=== PATIENT | female | born 1995 ===

== ENCOUNTER 2021-05-04 12:24 | Outpatient (REF) | payer OTHER, SELFPAY ==
[2021-05-04 14:41] LABS: COVID-19 Test Positive (Negative)
== END 2021-05-04 12:25 | disposition home or self-care (01) ==
LOC: HO.LAB 12:24
PROVIDERS: Visit Provider Internal Medicine
DX: Z20.822 Contact with and (suspected) exposure to COVID-19 (principal)
CPT/HCPCS: 87635; C9803

== ENCOUNTER 2021-05-11 10:06 | Outpatient (REF) | payer OTHER, SELFPAY ==
[2021-05-11 11:25] LABS: Binax Internal Control QC Valid; Binax Now Covid-19 Ag Negative (Negative)
== END 2021-05-11 10:07 | disposition home or self-care (01) ==
LOC: HO.LAB 10:06
PROVIDERS: Visit Provider Internal Medicine
DX: Z20.822 Contact with and (suspected) exposure to COVID-19 (principal)
CPT/HCPCS: C9803

== ENCOUNTER 2022-05-04 22:20 | Emergency (ER) | payer OTHER, SELFPAY ==
[2022-05-04 22:24] VITALS: PULSE 84; RESP 18; TEMP 36.3; O2SAT 97; BMI 31.7
[2022-05-04 22:49] LABS: COVID-19 Test Negative (Negative); IDNOW Serial# 6674DD1D
[2022-05-04 22:55] LABS: IDNOW Serial# BCCEAD1C; Influenza A Negative (Negative); Influenza B2 Negative (Negative)
[2022-05-04 23:06] LABS: IDNOW Serial# 6674DD1D; Strep A Nucleic Acid Positive (Negative)
--- NOTE | 2022-05-05 01:11 | ED.GENADULT ---
HPI - General Adult General Chief complaint: General Medical Stated complaint: Sore Throat Time Seen by Provider: 05/05/22 01:03 Source: patient Mode of arrival: ambulatory Limitations: no limitations History of Present Illness HPI narrative: Patient comes to the emergency room complaining of 2 day of sore throat. Patient denies fever chills. No coughing. No difficulty breathing Related Data Previous Rx's Medication Instructions Recorded azithromycin 250 mg tablet 250 mg PO DAILY 6 days #6 tabs 05/05/22 benzocaine 15 mg lozenges 15 mg mucous membrane Q2-3H PRN 05/05/22 sore throat #18 ea Allergies Allergy/AdvReac Type Severity Reaction Status Date / Time Penicillins Allergy Severe Swelling Verified 05/05/22 01:10 Review of Systems Review of Systems: Constitutional : No Weight loss, No Fever, No Chills, No Night Sweats, No Fatigue, No Malaise ENT/Mouth : No Hearing loss, No Ear Pain, No Nasal Congestion, No Sinus Pain, No Hoarseness, complaining of sore throat, No Rhinorrhea, No Swallowing Difficulty Eyes: No Eye Pain, No Swelling, No Redness, No Foreign Body, No Discharge, No Vision Changes Cardiovascular : No Chest Pain, No SOB, No Dyspnea on Exertion, No Orthopnea, No Edema, No Palpitations Respiratory : No Cough, No Sputum, No Wheezing, No Smoke Exposure, No Dyspnea Gastrointestinal : No Nausea, No Vomiting, No Diarrhea, No Constipation, No abdominal Pain, No Hematochezia, No Melena Genitourinary : no irregular bleeding, No Dysuria, No Urinary Frequency, No Hematuria, No Urinary Incontinence, No Urgency, No Flank Pain, No Urinary Flow Changes, No Hesitancy Musculoskeletal : No joint pain, No Myalgias, No Joint Swelling Skin : No Skin Lesions, No rash Neuro : No Weakness, No Numbness, No Paresthesias, No Loss of Consciousness, No Dizziness, No Headache Psych : No Anxiety/Panic, No Depression, No SI/HI/AH/VH, No Social Issues, Heme/Lymph: No Bruising, No Bleeding,No Lymphadenopathy Endocrine : No Polyuria, No Polydipsia, No Temperature Intolerance PMFSH Social History Social History Advance Directives: No Advance Directives Information Provided: No Physical Exam ED Vital Signs: Vital Signs - 24 hr 05/04/22 22:24 Temperature 97.4 F Pulse Rate 84 Respiratory Rate 18 Pulse Oximetry 97 Oxygen Delivery Method Room Air BMI result Body Mass Index 31.7 Const Other: Appearance: Alert. Oriented X3. No acute distress. Eyes: Pupils equal, round and reactive to light. ENT: Pharynx erythematous, no exudates, no abscesses visualized Neck: Normal inspection. Neck supple. No lymph nodes noted. No crepitus CVS: Normal heart rate and rhythm. Pulses normal. Normal S1 and S2 Respiratory: No respiratory distress. Breath sounds normal. No Wheezing. No rales Abdomen: Soft and nontender. No rigidity. No distention. Skin: Skin warm and dry. Normal skin color. Normal skin turgor. Extremities: No lower extremity edema. No Lacerations. No Rash Neuro: Oriented X 3. No motor deficit. No sensory deficit. Moving all extremities. No slurred speech. CN 2 through 12 grossly intact Psych: calm, cooperative, normal affect Course Course Course Narrative: Patient tested positive for strep pharyngitis. Patient given in the emergency room 1st dose of azithromycin (patient is allergic to penicillin), PO dexamethasone and viscous lidocaine. Medical Decision Making Differential Diagnosis Differential Diagnoses: The differential diagnosis associated with the presentation includes (Strep pharyngitis, viral pharyngitis, COVID, influenza) Lab Data MDM Lab Attestation statement: I reviewed the patient's lab results. Labs: Lab Results 05/04/22 05/04/22 05/04/22 Range/Units 22:31 22:31 22:31 COVID-19 (LUCERO) Negative (Negative) COVID-19 Clin Com See Note Influenza Type A (ETHAN) Negative (Negative) Influenza Type B (ETHAN) Negative (Negative) Influenza A & B Note See Note S. pyogenes GrpA ETHAN Positive A (Negative) Discharge Plan Discharge Clinical Impression: Acute streptococcal pharyngitis Patient Disposition: Home, Self-Care Additional Instructions: Please follow-up with your primary care physician tomorrow. If you have any worsening or new symptoms, please return to the emergency room or call 911 Prescriptions: New azithromycin 250 mg tablet 250 mg PO DAILY 6 Days Qty: 6 0RF Rx Instructions: start on day 2 of therapy benzocaine 15 mg lozenge 15 mg mucous membrane Q2-3H PRN (Reason: sore throat) Qty: 18 0RF
[2022-05-05 01:26] VITALS: BP 126/58; PULSE 84; RESP 16; TEMP 37.3; O2SAT 98
[2022-05-05] MEDS: dexAMETHasone sod phosphate 4 MG/ML VIAL 6 MG IVPUSH (01:27)
[2022-05-05] MEDS: Lidocaine HCl Viscous 2 % 15 ML SOLUTION MUCOUS MEM (01:27)
[2022-05-05] MEDS: Azithromycin 500 MG TABLET PO (01:27)
== END 2022-05-05 01:38 | disposition home or self-care (01) ==
PROVIDERS: Emergency Provider Emergency Medicine
DX: J02.0 Streptococcal pharyngitis (principal); Z20.822 Contact with and (suspected) exposure to COVID-19; Z79.899 Other long term (current) drug therapy
CPT/HCPCS: 87502; 87635; 87651; 99283; J1100

== ENCOUNTER 2022-05-28 06:37 | Emergency (ER) | payer OTHER, SELFPAY ==
--- NOTE | ~2022-05-28 | XR_ITS ---
EXAMINATION: XR ABDOMEN KUB CLINICAL INDICATION: Abdominal pain and constipation. COMPARISON: None TECHNIQUE: AP views of the abdomen. FINDINGS: Moderate air and stool throughout the bowel. No significant bowel dilatation. Air and stool noted within the rectum. No abnormal soft tissue calcification. No acute osseous abnormality. IUD within the pelvis. Metallic density overlying the right lower back, indicated to represent a piercing. XR/XR KUB IMPRESSION: Moderate air and stool throughout the bowel. No significant bowel dilatation.
[2022-05-28 06:44] VITALS: BP 101/72; PULSE 80; RESP 18; TEMP 36.9; O2SAT 99
[2022-05-28 06:46] VITALS: BMI 30.9
--- OUTSIDE RECORDS SUMMARY | 2022-05-28 06:52 | XMS_ITS | Continuity of Care Document ---
:1995 Author Organization [facility] Address [address] [place] [address]- Care Team Providers Name Role Phone Aguila KUMAR, Nydia Calhoun Primary Care Physician Encounter [facility] [place] Date(s): 10/13/21 - 01/14/22 [facility] [address]- Attending Physician: Nydia Sheehan NP Admitting Physician: Nydia Sheehan NP Allergies, Adverse Reactions, Alerts Substance Reaction Severity Status penicillin Active Immunizations Given and Recorded Vaccine Date Status Refusal Reason tetanus/diphtheria/pertussis, acel(Tdap) 02/02/14 Given influenza virus vaccine, inactivated 02/02/14 Given influenza virus vaccine, inactivated1 01/31/12 Given influenza virus vaccine, inactivated 03/30/98 Given influenza virus vaccine, inactivated 12/29/97 Given hepatitis B pediatric vaccine2 05/05/10 Given hepatitis B pediatric vaccine 94 Given hepatitis B pediatric vaccine3 94 Given hepatitis B pediatric vaccine 94 Given Human Papillomavirus Vaccine4 09/20/09 Given Human Papillomavirus Vaccine5 05/20/09 Given Human Papillomavirus Vaccine6 09/05/07 Given influ virus vac, H1N1, live(oldterm)7 05/20/09 Given Influenza Inactive (IM) (oldterm)8 05/20/09 Given Meningococcal Polysaccharide Vaccine9 05/20/09 Given Tet/Diphth/Acel, Pertussis (oldterm)10 09/26/07 Given Varicella Virus Xrvompy33 09/26/07 Given Varicella Virus Vaccine 12/29/97 Given Measles/Mumps/Rubella Virus Vaccine 05/31/98 Given Measles/Mumps/Rubella Virus Vaccine 02/21/95 Given diphtheria/tetanus/pertussis, acel(DTaP) 05/31/98 Given diphtheria/tetanus/pertussis, acel(DTaP) 06/05/95 Given diphtheria/tetanus/pertussis, acel(DTaP) 94 Given diphtheria/tetanus/pertussis, acel(DTaP) 94 Given diphtheria/tetanus/pertussis, acel(DTaP) 94 Given Poliovirus Vaccine, Inactivated 05/31/98 Given Poliovirus Vaccine, Ynlyyygupdr79 94 Given Poliovirus Vaccine, Nfeyehstnrt19 94 Given Poliovirus Vaccine, Pyzhlbsnvrb04 94 Given Haemophilus B conjugate (HbOC) vaccine 06/05/95 Given Haemophilus B conjugate (HbOC) vaccine 94 Given Haemophilus B conjugate (HbOC) vaccine 94 Given Haemophilus B conjugate (HbOC) vaccine 94 Given 1Admin Note: VIS dated 10/30/11 lyqhl8Jlxle Note: VIS 11/14/06. given.3Admin Note: VIS dated 11/14/2006 kueng5Lkfdh Note: vis 07.27.2009 ftnma7Iburl Note: VIS 06/01/06 ZPWIQ4Uequf Note: gardasil #17Admin Note: VIS 01/2009 NHMCS0Oljhc Note: VIS 12/27/08 MTGIG7Rdjie Note: VIS 2007 KQVAA89Gmixj Note: RVLS72Qvtnl Note: JHEIKRP55Pypjq Note: oral yqask56Hsrmd Note: oral amdow22Alclv Note: oral polio Medications ProAir HFA 90 mcg/inh inhalation aerosol with adapter 1, puffs, Inhalation, Every 4 hours, PRN, # 2 each, Refills 2, Tot. Refills 2, Maintenance, 10/14/2211:08:00 EDT, Aerosol, Route to Pharmacy Electronically, [id number], [facility] #[id number], 463, cm, 10/13/21 11:09:00... Start Date: 10/13/21 Stop Date: 01/11/22 Status: OrderedSpacer Spacer, See Instructions, # 1 each, Refills 0, Tot. Refills 0, Maintenance, Asthma (J45.909) VAN lifetime, 10/13/21 12:09:00 EDT, Compound, 163, cm, 10/13/21 11:09:00 EDT, Height Start Date: 10/13/21 Status: OrderedZyrTEC 10 mg oral tablet 1 tablet = 10 mg, By Mouth, Daily, # 30 tablet, 11 Refills, Maintenance, 10/13/21 12:08:00 EDT, Tablet, [facility] #[id number], 163, cm, 10/13/21 11:09:00 EDT, Height Start Date: 10/13/21 Status: Ordered Problem List Condition Effective Dates Status Health Status Informant Allergic rhinitis(Confirmed) Active Asthma (possible)(Confirmed) Active Headache(Confirmed)1 Active School difficulties(Confirmed) Active Severe obesity(Confirmed) Active 1Probable migraine Social History Social History Type Response Smoking Status Never (less than 100 in life time) entered on: 10/24/18 Sex Female Care Team PersonnelName: Aguila KUMAR, Nydia Calhoun Address: [address] [place] [address]
--- OUTSIDE RECORDS SUMMARY | 2022-05-28 06:52 | XMS_ITS | Continuity of Care Document ---
:1995 Author Organization [facility] Address [address] [place] [address]- Care Team Providers Name Role Phone Aguila KUMAR, Nydia Calhoun Primary Care Physician [phone] Encounter [facility] Date(s): 02/22/22 - 03/24/22 [facility] [address]- [place] Allergies, Adverse Reactions, Alerts Substance Reaction Severity [...] Tet/Diphth/Acel, Pertussis (oldterm)10 09/26/07 Given Varicella Virus Tjbotwl29 09/26/07 Given Varicella Virus Vaccine 12/29/97 Given Measles/Mumps/Rubella Virus Vaccine 05/31/98 Given Measles/Mumps/Rubella Virus Vaccine 02/21/95 Given diphtheria/tetanus/pertussis, acel(DTaP) 05/31/98 Given diphtheria/tetanus/pertussis, acel(DTaP) 06/05/95 Given diphtheria/tetanus/pertussis, acel(DTaP) 94 Given diphtheria/tetanus/pertussis, acel(DTaP) 94 Given diphtheria/tetanus/pertussis, acel(DTaP) 94 Given Poliovirus Vaccine, Inactivated 05/31/98 Given Poliovirus Vaccine, Drtdiftukut25 94 Given Poliovirus Vaccine, Gvoaxgqwpdz30 94 Given Poliovirus Vaccine, Qpwposwkngp81 94 Given Haemophilus B conjugate (HbOC) vaccine 06/05/95 Given Haemophilus B conjugate (HbOC) vaccine 94 Given Haemophilus B conjugate (HbOC) vaccine 94 Given Haemophilus B conjugate (HbOC) vaccine 94 Given 1Admin Note: VIS dated 10/30/11 joaan6Orrak Note: VIS 11/14/06. given.3Admin Note: VIS dated 11/14/2006 wuwft1Tbpud Note: vis 07.27.2009 cxozj2Axycu Note: VIS 06/01/06 XUMWN6Vudde Note: gardasil #17Admin Note: VIS 01/2009 RDQLE0Wmybu Note: VIS 12/27/08 SQUBJ4Rovdx Note: VIS 2007 HOECZ06Tynem Note: UCWV29Udwrc Note: JMSQIHX95Myjfc Note: oral wnovz93Xbsgn Note: oral xqwus16Dpdmn Note: oral polio Medications diclofenac 1% topical gel 1 application, Topically, 4 times a day, # 100 Gm, 0 Refills, Maintenance, 01/17/22 12:11:00 EDT, [facility] #[id number], Partial fill upon patient request if the prescription is for a schedule II opioid drug., 163, cm, 01/17/22 11:08:00 EDT... Start Date: 01/17/22 Status: Orderedescitalopram 10 mg oral tablet 1 tablet = 10 mg, By Mouth, Daily, take 1/2 pills for one week, then increase to full pill daily, # 30 tablet, 2 Refills, Maintenance, 03/08/22 12:08:00 EST, Tablet, [facility] #[id number], Partial fill upon patient request if the prescription is... Start Date: 03/08/22 Status: OrderedhydrOXYzine hydrochloride 25 mg oral tablet 1 tablet = 25 mg, By Mouth, Daily at bedtime, PRN for anxiety/insomnia, may increase to 2 pills if needed, # 30 tablet, 2 Refills, Maintenance, 03/08/22 12:09:00 EST, Tablet, [facility] #[id number], Partial fill upon patient request if the prescr... Start Date: 03/08/22 Status: OrderedProAir HFA 90 mcg/inh inhalation aerosol with adapter 1, puffs, Inhalation, Every 4 hours, PRN, # 2 each, Refills 2, Tot. Refills 2, Maintenance, 01/17/2211:53:00 EDT, Aerosol, Route to Pharmacy Electronically, [id number], [facility] #[id number], 163, cm, 01/17/22 11:08:00... Start Date: 01/17/22 Stop Date: 04/17/22 Status: OrderedSpacer Spacer, See Instructions, # 1 each, Refills 0, Tot. 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 VAN: 99, 01/17/22 17:27:00 EDT, Supply Start Date: 01/17/22 Status: OrderedZyrTEC 10 mg oral tablet 1 tablet = 10 mg, By Mouth, Daily, # 30 tablet, 11 Refills, Maintenance, 10/13/21 12:08:00 EDT, Tablet, [facility] #[id number], 163, cm, 10/13/21 11:09:00 EDT, Height Start Date: 10/13/21 Status: Ordered Problem List Condition Confirmation Course Effective Dates Status Health Stat us Informant Allergic rhinitis Confirmed Active Asthma (possible) Confirmed Active Headache1 Confirmed Active Obese class I Confirmed Active School difficulties Confirmed Active 1Probable migraine Social History Social History Type Response Smoking Status Never (less than 100 in life time) entered on: 02/02/22 Sex Female Patient Care team information Care Team PersonnelName: Aguila KUMAR, Nydia Calhoun Position: [facility] PCO Associate Professional Member Role: PCP Address: Address: [address] [place] [id number]- Care Team Related PersonsName: ROEL ESCOBAR Address: home [address] [place] [address] Name: HOLDEN MENENDEZ Address: home [address] [place] [address]
--- OUTSIDE RECORDS SUMMARY | 2022-05-28 06:52 | XMS_ITS | Continuity of Care Document ---
:1995 Author Organization [facility] Address [address] [place] [address]- Care Team Providers Name Role Phone Aguila KUMAR, Nydia Calhoun Primary Care Physician [phone] Encounter [facility] [place] Date(s): 12/15/21 - 01/14/22 [facility]/[place] [address]- Attending Physician: Nikkie Olivares Admitting Physician: Nikkie Olivares Referring Physician: AdmtrNikkie Allergies, Adverse Reactions, Alerts Substance Reaction Severity [...] Tet/Diphth/Acel, Pertussis (oldterm)10 09/26/07 Given Varicella Virus Uotidoc28 09/26/07 Given Varicella Virus Vaccine 12/29/97 Given Measles/Mumps/Rubella Virus Vaccine 05/31/98 Given Measles/Mumps/Rubella Virus Vaccine 02/21/95 Given diphtheria/tetanus/pertussis, acel(DTaP) 05/31/98 Given diphtheria/tetanus/pertussis, acel(DTaP) 06/05/95 Given diphtheria/tetanus/pertussis, acel(DTaP) 94 Given diphtheria/tetanus/pertussis, acel(DTaP) 94 Given diphtheria/tetanus/pertussis, acel(DTaP) 94 Given Poliovirus Vaccine, Inactivated 05/31/98 Given Poliovirus Vaccine, Dnacxapiooq18 94 Given Poliovirus Vaccine, Myfqvsofhoy82 94 Given Poliovirus Vaccine, Ddhqtymdesa83 94 Given Haemophilus B conjugate (HbOC) vaccine 06/05/95 Given Haemophilus B conjugate (HbOC) vaccine 94 Given Haemophilus B conjugate (HbOC) vaccine 94 Given Haemophilus B conjugate (HbOC) vaccine 94 Given 1Admin Note: VIS dated 10/30/11 yeynq6Phqzb Note: VIS 11/14/06. given.3Admin Note: VIS dated 11/14/2006 isjxj8Nwxal Note: vis 07.27.2009 yzzql9Tuiyz Note: VIS 06/01/06 AUPWN9Labuo Note: gardasil #17Admin Note: VIS 01/2009 ODQYQ6Yfnhw Note: VIS 12/27/08 JWJRJ8Eogou Note: VIS 2007 NQDAV32Vqxcc Note: XZXT64Dnaik Note: OXPPYYU52Igcel Note: oral yktpe68Ymvvc Note: oral msbqv12Fbezh Note: oral polio Medications ProAir HFA 90 mcg/inh inhalation aerosol with adapter 1, puffs, Inhalation, Every 4 hours, PRN, # 2 each, Refills 2, Tot. Refills 2, Maintenance, 10/14/2211:08:00 EDT, Aerosol, Route to Pharmacy Electronically, [id number], [facility] #[id number], 302, cm, 10/13/21 11:09:00... Start Date: 10/13/21 Stop [...] 11 Refills, Maintenance, 10/13/21 12:08:00 EDT, Tablet, [facility] #[id number], 163, cm, 10/13/21 11:09:00 EDT, Height Start [...] Team PersonnelName: Aguila KUMAR, Nydia Calhoun Address: [address] [place] [address]
--- OUTSIDE RECORDS SUMMARY | 2022-05-28 06:52 | XMS_ITS | Continuity of Care Document ---
:1995 Author Organization [facility] Address [address] [place] [address]- Care Team Providers Name Role Phone Aguila KUMAR, Nydia Calhoun Primary Care Physician [place] [facility] [place] - 04/19/[address] [address] Attending Physician: Nikkie Olivares Admitting Physician: AdmtrNikkie Referring Physician: Admtr, Ar8 Allergies, Adverse Reactions, Alerts Substance Reaction Severity [...] Tet/Diphth/Acel, Pertussis (oldterm)10 09/26/07 Given Varicella Virus Sokfkpd48 09/26/07 Given Varicella Virus Vaccine 12/29/97 Given Measles/Mumps/Rubella Virus Vaccine 05/31/98 Given Measles/Mumps/Rubella Virus Vaccine 02/21/95 Given diphtheria/tetanus/pertussis, acel(DTaP) 05/31/98 Given diphtheria/tetanus/pertussis, acel(DTaP) 06/05/95 Given diphtheria/tetanus/pertussis, acel(DTaP) 94 Given diphtheria/tetanus/pertussis, acel(DTaP) 94 Given diphtheria/tetanus/pertussis, acel(DTaP) 94 Given Poliovirus Vaccine, Inactivated 05/31/98 Given Poliovirus Vaccine, Ohkhfyfmrwn03 94 Given Poliovirus Vaccine, Ndjnqsfhefe91 94 Given Poliovirus Vaccine, Usuozsfzxjd59 94 Given Haemophilus B conjugate (HbOC) vaccine 06/05/95 Given Haemophilus B conjugate (HbOC) vaccine 94 Given Haemophilus B conjugate (HbOC) vaccine 94 Given Haemophilus B conjugate (HbOC) vaccine 94 Given 1Admin Note: VIS dated 10/30/11 qlhmf0Rzqlc Note: VIS 11/14/06. given.3Admin Note: VIS dated 11/14/2006 xwfdp6Ayhbd Note: vis 07.27.2009 jhxhm4Qmkgp Note: VIS 06/01/06 SEWPO2Mjatv Note: gardasil #17Admin Note: VIS 01/2009 JKUFB9Kotwm Note: VIS 12/27/08 NYJCA8Kcpmc Note: VIS 2007 CSAUM07Nresy Note: KIEZ13Ecvym Note: KUUFRKY88Khngy Note: oral lrdvs39Ncqvj Note: oral sginq65Guvra Note: oral polio Medications diclofenac 1% topical gel 1 application, Topically, 4 times a day, # 100 Gm, 0 Refills, Maintenance, 01/17/22 12:11:00 EDT, [facility] #[id number], Partial fill upon patient request if the prescription is for a schedule II opioid drug., 163, cm, 01/17/22 11:08:00 EDT... Start Date: 01/17/22 Status: Orderedescitalopram 10 mg oral tablet 1 tablet = 10 mg, By Mouth, Daily, take 1/2 pills for one week, then increase to full pill daily, # 30 tablet, 2 Refills, Maintenance, 03/08/22 12:08:00 EST, [facility][id number], Partial fill upon patient request if the prescription is... Start Date: 03/08/22 Status: OrderedhydrOXYzine hydrochloride 25 mg oral tablet 1 tablet = 25 mg, By Mouth, Daily at bedtime, PRN for anxiety/insomnia, may increase to 2 pills if needed, # 30 tablet, 2 Refills, Maintenance, 03/08/22 12:09:00 EST, Tablet, [facility] #[id number], Partial fill upon patient request if the prescr... Start Date: 03/08/22 Status: OrderedProAir HFA 90 mcg/inh inhalation aerosol with adapter 1, puffs, Inhalation, Every 4 hours, PRN, # 2 each, Refills 2, Tot. Refills 2, Maintenance, 01/17/2211:53:00 EDT, Aerosol, Route to Pharmacy Electronically, [id number], [facility] #[id number], 163, cm, 01/17/22 11:08:00... Start Date: 01/17/22 [...] 11 Refills, Maintenance, 10/13/21 12:08:00 EDT, Tablet, [facility] #[id number], 163, cm, 10/13/21 11:09:00 EDT, Height Start [...] Team PersonnelName: Aguila KUMAR, Nydia Calhoun Position: [facility] PCO Associate Professional Member Role: PCP Address: Address: [address] [place] [id number]- Care Team Related PersonsName: ROEL ESCOBAR Address: home [address] [place] [address] Name: HOLDEN MENENDEZ Address: home [address] [place] [address]
--- OUTSIDE RECORDS SUMMARY | 2022-05-28 06:53 | XMS_ITS | Continuity of Care Document ---
:1995 Author Organization [facility] Address [address] [place] [address]- Care Team Providers Name Role Phone Aguila KUMAR, Nydia Calhoun Primary Care Physician Encounter [facility] Date(s): 02/22/22 - 02/23/[address] [address]- Encounter Diagnosis Lumbar strain (Final) - 02/23/22 Discharge Disposition: A-D/C Home Attending Physician: Riley Aly MD Admitting Physician: Riley Aly MD Referring Physician: Not on Staff, Referring MD Allergies, Adverse Reactions, Alerts Substance Reaction Severity [...] Tet/Diphth/Acel, Pertussis (oldterm)10 09/26/07 Given Varicella Virus Ihbmyjx06 09/26/07 Given Varicella Virus Vaccine 12/29/97 Given Measles/Mumps/Rubella Virus Vaccine 05/31/98 Given Measles/Mumps/Rubella Virus Vaccine 02/21/95 Given diphtheria/tetanus/pertussis, acel(DTaP) 05/31/98 Given diphtheria/tetanus/pertussis, acel(DTaP) 06/05/95 Given diphtheria/tetanus/pertussis, acel(DTaP) 94 Given diphtheria/tetanus/pertussis, acel(DTaP) 94 Given diphtheria/tetanus/pertussis, acel(DTaP) 94 Given Poliovirus Vaccine, Inactivated 05/31/98 Given Poliovirus Vaccine, Kfjnxlihpgm02 94 Given Poliovirus Vaccine, Vnnfcwmrtro62 94 Given Poliovirus Vaccine, Deckoshuxci86 94 Given Haemophilus B conjugate (HbOC) vaccine 06/05/95 Given Haemophilus B conjugate (HbOC) vaccine 94 Given Haemophilus B conjugate (HbOC) vaccine 94 Given Haemophilus B conjugate (HbOC) vaccine 94 Given 1Admin Note: VIS dated 10/30/11 pqjit8Djvmb Note: VIS 11/14/06. given.3Admin Note: VIS dated 11/14/2006 olmah4Nlsvs Note: vis 07.27.2009 zgwac9Jtuvo Note: VIS 06/01/06 VBHNX4Dalsi Note: gardasil #17Admin Note: VIS 01/2009 ZFTWH9Fqvut Note: VIS 12/27/08 ZZEMP8Qihao Note: VIS 2007 PYLRL40Qpgtv Note: UZFH36Espjj Note: SMNVDQA37Ebagb Note: oral nzoyi65Fllta Note: oral jryio24Iyugt Note: oral polio Medications diclofenac 1% topical gel 1 application, Topically, 4 times a day, # 100 Gm, 0 Refills, Maintenance, 01/17/22 12:11:00 EDT, Gel, [facility] #[id number], Partial fill upon patient request if the prescription is for a schedule II opioid drug., 163, cm, 01/17/22 11:08:00 EDT... Start Date: 01/17/22 Status: Orderedibuprofen 600 mg oral tablet 600 mg, 1, tablet, By Mouth, Every 6 hours, for 7 days, # 28 tablet, Refills 0, Tot. Refills 0, Acute 03/02/22 3:34:00 EDT, 02/23/22 3:34:00 EDT, Route to Pharmacy Electronically, [facility] #[id number], Partial fill upon patient request if the p... Start Date: 02/23/22 Stop Date: 03/02/22 Status: Orderedlidocaine 1.8% topical film 1 patch, Topically, Daily, for 7 days, leave on up to 12 hours, # 7 each, 0 Refills, Acute 03/02/22 3:34:00 EDT, 02/23/22 3:34:00 EDT, Film, [facility] #[id number], Partial fill upon patient request if the prescription is for a schedule II opioid... Start Date: 02/23/22 Stop Date: 03/02/22 Status: OrderedProAir HFA 90 mcg/inh inhalation aerosol with adapter 1, puffs, Inhalation, Every 4 hours, PRN, # 2 each, Refills 2, Tot. Refills 2, Maintenance, 01/17/2211:53:00 EDT, Aerosol, Route to Pharmacy Electronically, [id number], [facility] #[id number], 163, cm, 01/17/22 11:08:00... Start Date: 01/17/22 [...] 17:27:00 EDT, Supply Start Date: 01/17/22 Status: OrderedTylenol 325 mg oral tablet 650 mg, 2, tablet, By Mouth, Every 6 hours, PRN, for 7 days, # 56 tablet, Refills 0, Tot. Refills 0,Acute 03/02/22 3:34:00 EDT, for fever, 02/23/22 3:34:00 EDT, Route to Pharmacy Electronically, [facility] #[id number], Partial fill upon patient... Start Date: 02/23/22 Stop Date: 03/02/22 Status: OrderedValium 5 mg oral tablet 5 mg, 1, tablet, By Mouth, 3 times a day, for 3 days, Partial Fill Acceptable, # 9 tablet, Refills 0, Tot. Refills 0, Acute 02/26/22 3:34:00 EDT, 02/23/22 3:34:00 EDT, Route to Pharmacy Electronically,[facility] #[id number], Partial fill upon pa... Start Date: 02/23/22 Stop Date: 02/26/22 Status: OrderedZyrTEC 10 mg oral tablet 1 tablet = 10 mg, By Mouth, Daily, # 30 tablet, 11 Refills, Maintenance, 10/13/21 12:08:00 EDT, Tablet, [facility] #[id number], 163, cm, 10/13/21 11:09:00 EDT, Height Start Date: 10/13/21 Status: Ordered Problem List Condition Confirmation Course Effective Dates Status Health Stat us Informant Allergic rhinitis Confirmed Active Asthma (possible) Confirmed Active Headache1 Confirmed Active Obese class I Confirmed Active School difficulties Confirmed Active 1Probable migraine Vital Signs Most recent to oldest 1 2 3 [Reference Range]: Oxygen Saturation [94-100 98 % 99 % 100 % %] (02/23/22 4:02 AM) (02/23/22 3:58 AM) (02/23/22 2:13 AM) Pulse Rate [55-90 bpm] 55 bpm 48 bpm 50 bpm (02/23/22 4:02 AM) *L* *L* (02/23/22 3:58 AM) (02/23/22 2:1 3 AM) Blood Pressure 112/59 mm Hg 104/73 mm Hg 108/71 mm Hg [90-138/55-84 mm Hg] (02/23/22 4:02 AM) (02/23/22 3:58 AM) (01/29 11/18 2:13 AM) Respiratory Rate [16-30 18 br/min 16 br/min 16 br/mi n br/min] (02/23/22 3:58 AM) (02/22/22 10:25 PM) (02/22/22 10:20 PM) Temperature [96.8-100.4 97.9 DegF 98.4 DegF 98.4 Deg F DegF] (02/23/22 4:02 AM) (02/23/22 2:13 AM) (02/23/22 12:11 AM) Mode of Delivery (Oxygen) Room air Room air Room a ir (02/23/22 3:58 AM) (02/22/22 10:25 PM) (02/22/22 10:20 PM) Blood pressure sites Arm, left Arm, left Arm, left (02/23/22 4:02 AM) (02/23/22 3:58 AM) (02/23/22 2:13 AM) Temperature Route Oral Oral Oral (02/23/22 4:02 AM) (02/23/22 2:13 AM) (02/23/22 12:11 AM) Social History Social History Type Response Smoking Status Never (less than 100 in life time) entered on: 02/02/22 Sex Female Patient Care team information PersonnelName: Aguila KUMAR, Nydia Calhoun Address: Address: [address] [place] [address]
--- OUTSIDE RECORDS SUMMARY | 2022-05-28 06:53 | XMS_ITS | Continuity of Care Document ---
:1995 Author Organization [facility] enter/[facility] Address Unavailable , Care Team Providers Name Role Phone Aguila KUMAR, Nydia Calhoun Primary Care Physician Encounter [facility] Date(s): 10/15/21 - 11/14/21 [facility] Allergies, Adverse Reactions, Alerts Substance Reaction Severity [...] Tet/Diphth/Acel, Pertussis (oldterm)10 09/26/07 Given Varicella Virus Jbjgzik08 09/26/07 Given Varicella Virus Vaccine 12/29/97 Given Measles/Mumps/Rubella Virus Vaccine 05/31/98 Given Measles/Mumps/Rubella Virus Vaccine 02/21/95 Given diphtheria/tetanus/pertussis, acel(DTaP) 05/31/98 Given diphtheria/tetanus/pertussis, acel(DTaP) 06/05/95 Given diphtheria/tetanus/pertussis, acel(DTaP) 94 Given diphtheria/tetanus/pertussis, acel(DTaP) 94 Given diphtheria/tetanus/pertussis, acel(DTaP) 94 Given Poliovirus Vaccine, Inactivated 05/31/98 Given Poliovirus Vaccine, Yhmdgazwgva50 94 Given Poliovirus Vaccine, Jcfeuxlufmk96 94 Given Poliovirus Vaccine, Etddpyejnmo75 94 Given Haemophilus B conjugate (HbOC) vaccine 06/05/95 Given Haemophilus B conjugate (HbOC) vaccine 94 Given Haemophilus B conjugate (HbOC) vaccine 94 Given Haemophilus B conjugate (HbOC) vaccine 94 Given 1Admin Note: VIS dated 10/30/11 wywps3Rstxk Note: VIS 11/14/06. given.3Admin Note: VIS dated 11/14/2006 pibdt1Sdrnc Note: vis 07.27.2009 whggv6Wqjqb Note: VIS 06/01/06 WYFOO8Kuwwi Note: gardasil #17Admin Note: VIS 01/2009 CWPZL5Uxzzy Note: VIS 12/27/08 YMBBA3Eqpbx Note: VIS 2007 ARIVT91Hvafm Note: NYUA40Epxdb Note: RDSVBAO02Bzuug Note: oral rispu73Cevei Note: oral nvdfd85Bpyuc Note: oral polio Medications ProAir HFA 90 mcg/inh inhalation aerosol with adapter 1, puffs, Inhalation, Every 4 hours, PRN, # 2 each, Refills 2, Tot. Refills 2, Maintenance, 10/14/2211:08:00 EDT, Aerosol, Route to Pharmacy Electronically, [id number], [facility] #[id number], 163, cm, 10/13/21 11:09:00... Start Date: 10/13/21 Stop [...] 11 Refills, Maintenance, 10/13/21 12:08:00 EDT, Tablet, [facility] #[id number], 163, cm, 10/13/21 11:09:00 EDT, Height Start Date: 10/13/21 Status: Ordered Problem List Condition Effective Dates Status Health Status Informant Allergic rhinitis(Confirmed) Active Asthma (possible)(Confirmed) Active Headache(Confirmed)1 Active School difficulties(Confirmed) Active Severe obesity(Confirmed) Active 1Probable migraine Social History Social History Type Response Smoking Status Never (less than 100 in life time) entered on: 10/24/18 Sex Female
--- OUTSIDE RECORDS SUMMARY | 2022-05-28 06:53 | XMS_ITS | Continuity of Care Document ---
:1995 Author Organization [facility] Address [address] [place] [address]- Care Team Providers Name Role Phone Not on Staff, PCP Primary Care Physician Unavailable Encounter [facility] Date(s): 11/23/20 - 11/23/[address] [address]- Discharge Disposition: A-D/C Walkout Attending Physician: Elias Adams MD Admitting Physician: Elias Adams MD Referring Physician: Not on Staff, Referring [...] Tet/Diphth/Acel, Pertussis (oldterm)10 09/26/07 Given Varicella Virus Iqsshxw40 09/26/07 Given Varicella Virus Vaccine 12/29/97 Given Measles/Mumps/Rubella Virus Vaccine 05/31/98 Given Measles/Mumps/Rubella Virus Vaccine 02/21/95 Given diphtheria/tetanus/pertussis, acel(DTaP) 05/31/98 Given diphtheria/tetanus/pertussis, acel(DTaP) 06/05/95 Given diphtheria/tetanus/pertussis, acel(DTaP) 94 Given diphtheria/tetanus/pertussis, acel(DTaP) 94 Given diphtheria/tetanus/pertussis, acel(DTaP) 94 Given Poliovirus Vaccine, Inactivated 05/31/98 Given Poliovirus Vaccine, Mdwrtlhmtfa12 94 Given Poliovirus Vaccine, Nmziycmtjcq96 94 Given Poliovirus Vaccine, Ruxcywldsez33 94 Given Haemophilus B conjugate (HbOC) vaccine 06/05/95 Given Haemophilus B conjugate (HbOC) vaccine 94 Given Haemophilus B conjugate (HbOC) vaccine 94 Given Haemophilus B conjugate (HbOC) vaccine 94 Given 1Admin Note: VIS dated 10/30/11 ecdry7Paxdv Note: VIS 11/14/06. given.3Admin Note: VIS dated 11/14/2006 okhea2Qnzbd Note: vis 07.27.2009 uvxas0Dwyas Note: VIS 06/01/06 RHBLQ0Nhgmd Note: gardasil #17Admin Note: VIS 01/2009 NXKDI9Wibev Note: VIS 12/27/08 NIDIM1Pjtml Note: VIS 2007 VTYZD23Stkas Note: KZBJ54Myqgv Note: EZXHNWY42Esyht Note: oral gyyfj19Sfooj Note: oral umknc46Hijdx Note: oral polio Medications Flonase 50 mcg/inh nasal spray 1 sprays, Nares, Both, 2 times a day, # 16 Gm, 1 Refills, Maintenance, 10/24/18 13:55:25 EDT, [place] Start Date: 10/24/18 Status: OrderedmetroNIDAZOLE 500 mg oral tablet 1 tablet = 500 mg, By Mouth, Every 12 hours, # 28 tablet, 0 Refills, Soft Stop, 02/08/19 12:32:10 EDT, Tablet Start Date: 02/08/19 Stop Date: 02/22/19 Status: OrderedProAir HFA 90 mcg/inh inhalation aerosol with adapter 1, puffs, Inhalation, Every 4 hours, PRN, # 2 each, Refills 1, Tot. Refills 1, Maintenance, 10/24/1912:55:12 EDT, Aerosol, Do Not Route Start Date: 10/24/18 Stop Date: 12/23/18 Status: OrderedZyrTEC 10 mg oral tablet 1 tablet = 10 mg, By Mouth, Daily, # 30 tablet, 2 Refills, Maintenance, 10/24/18 13:55:26 EDT, Tablet Start Date: 10/24/18 Status: Ordered Problem List Condition Effective Dates Status Health Status Informant Allergic rhinitis(Confirmed) Active Asthma (possible)(Confirmed) Active Headache(Confirmed)1 Active School difficulties(Confirmed) Active 1Probable migraine Social History Social History Type Response Smoking Status Never (less than 100 in life time) entered on: 10/24/18 Sex Female
--- OUTSIDE RECORDS SUMMARY | 2022-05-28 06:53 | XMS_ITS | Continuity of Care Document ---
:1995 Author Organization [facility] Address [address] [place] [address]- Care Team Providers Name Role Phone Not on Staff, PCP Primary Care Physician Unavailable [facility]counter [facility] Date(s): 02/05/20 - 02/06/[address] [address]- [facility] Discharge Disposition: A-D/C Home Attending Physician: Riley [...] Tet/Diphth/Acel, Pertussis (oldterm)10 09/26/07 Given Varicella Virus Wqlylhl92 09/26/07 Given Varicella Virus Vaccine 12/29/97 Given Measles/Mumps/Rubella Virus Vaccine 05/31/98 Given Measles/Mumps/Rubella Virus Vaccine 02/21/95 Given diphtheria/tetanus/pertussis, acel(DTaP) 05/31/98 Given diphtheria/tetanus/pertussis, acel(DTaP) 06/05/95 Given diphtheria/tetanus/pertussis, acel(DTaP) 94 Given diphtheria/tetanus/pertussis, acel(DTaP) 94 Given diphtheria/tetanus/pertussis, acel(DTaP) 94 Given Poliovirus Vaccine, Inactivated 05/31/98 Given Poliovirus Vaccine, Iewjpvsruxu74 94 Given Poliovirus Vaccine, Prfslifrvvy37 94 Given Poliovirus Vaccine, Lckthayfyrm61 94 Given Haemophilus B conjugate (HbOC) vaccine 06/05/95 Given Haemophilus B conjugate (HbOC) vaccine 94 Given Haemophilus B conjugate (HbOC) vaccine 94 Given Haemophilus B conjugate (HbOC) vaccine 94 Given 1Admin Note: VIS dated 10/30/11 ngntb7Mvaaf Note: VIS 11/14/06. given.3Admin Note: VIS dated 11/14/2006 ymrqb5Ciemz Note: vis 07.27.2009 nbptj9Hfmod Note: VIS 06/01/06 XFMSC7Ekaam Note: gardasil #17Admin Note: VIS 01/2009 MHTON3Ykaqs Note: VIS 12/27/08 WXMLV3Hzzyg Note: VIS 2007 XPODR41Mjfun Note: YVIC91Kmrqa Note: BQKGRWV32Jzrys Note: oral vrynj43Pvyke Note: oral oxhth20Auykf Note: oral polio Medications Flonase 50 mcg/inh nasal spray 1 sprays, Nares, Both, 2 times a day, # 16 Gm, 1 Refills, Maintenance, 10/24/18 13:55:25 EDT, [place] Start Date: 10/24/18 Status: OrderedmetroNIDAZOLE 500 mg oral tablet 1 tablet = 500 mg, By Mouth, Every 12 hours, for 7 days, # 14 tablet, 0 Refills, Acute 02/13/20 4:23:00 EDT, 02/06/20 4:23:00 EDT, Tablet, [facility] #[id number], 165, cm, 10/24/18 13:23:00 EDT, Height, 69.9, kg, 02/08/19 14:57:00 EDT, Dry Weight Start Date: 02/06/20 Stop Date: 02/13/20 Status: OrderedmetroNIDAZOLE 500 mg oral tablet 1 [...] Headache(Confirmed)1 Active School difficulties(Confirmed) Active 1Probable migraine Results Orders for Microbiology Reports Name Date Wet Prep 02/06/20 Microbiology Reports TEST:Wet Prep STATUS:Auth (Verified) BODY SITE: SOURCE:VAGINA COLLECTED DATE/TIME:02/06/20 3:49 AMWet Prep SPECIMEN DESCRIPTION : VAGINAL SPECIMEN SPECIAL REQUESTS : NONE DIRECT EXAM : SPECIMEN RECEIVED ON DRY SWAB. UNABLE TO ANALYZE FOR TRICHOMONADS. PLEASE SUBMIT SWAB IN STERILE TUBE CONTAINING 1 ML STERILE SALINE. 4+ CLUE CELLS 2+ WHITE BLOOD CELLS NO YEAST OBSERVED REPORT STATUS : FINAL 02/06/2020 Vital Signs Most recent to oldest 1 2 3 [Reference Range]: Oxygen Saturation [94-100 %] 99 % 100 % 98 % (02/06/20 4:00 AM) (02/06/20 2:35 AM) (02/05/20 9:2 8 PM) Pulse Rate [55-90 bpm] 65 bpm 61 bpm 67 bpm (02/06/20 4:00 AM) (02/06/20 2:35 AM) (02/05/20 9:2 8 PM) Blood Pressure [90-138/55-84 mm 110/75 mm Hg 108/54 mm Hg 129/75 mm Hg Hg] (02/06/20 4:00 AM) (02/06/20 2:35 AM) (02/05/20 9:2 8 PM) Respiratory Rate [16-30 br/min] 18 br/min 18 br/min 18 br/min (02/06/20 4:00 AM) (02/06/20 2:35 AM) (02/05/20 9:2 8 PM) Temperature [96.8-100.4 DegF] 98.9 DegF (02/05/20 9:28 PM) Mode of Delivery (Oxygen) Room air Room air Room a ir (02/06/20 4:00 AM) (02/06/20 2:35 AM) (02/05/20 9:2 8 PM) Blood pressure sites Arm, right Arm, right Arm, right (02/06/20 4:00 AM) (02/06/20 2:35 AM) (02/05/20 9:2 8 PM) Temperature Route Oral (02/05/20 9:28 PM) Social History Social History Type Response Smoking Status Never (less than 100 in life time) entered on: 10/24/18 Sex Female
--- OUTSIDE RECORDS SUMMARY | 2022-05-28 06:53 | XMS_ITS | Continuity of Care Document ---
:1995 Author Organization [facility] Address [address] [place] [address]- Care Team Providers Name Role Phone Aguila KUMAR, Nydia Calhoun Primary Care Physician [facility] Date(s): 04/13/22 - 05/13/22 [facility] [address] [address] Attending Physician: Nikkie Olivares Admitting Physician: AdmNikkie nichols Referring Physician: AdmtrNikkie Allergies, Adverse Reactions, Alerts [...] Tet/Diphth/Acel, Pertussis (oldterm)10 09/26/07 Given Varicella Virus Xrbhjwb72 09/26/07 Given Varicella Virus Vaccine 12/29/97 Given Measles/Mumps/Rubella Virus Vaccine 05/31/98 Given Measles/Mumps/Rubella Virus Vaccine 02/21/95 Given diphtheria/tetanus/pertussis, acel(DTaP) 05/31/98 Given diphtheria/tetanus/pertussis, acel(DTaP) 06/05/95 Given diphtheria/tetanus/pertussis, acel(DTaP) 94 Given diphtheria/tetanus/pertussis, acel(DTaP) 94 Given diphtheria/tetanus/pertussis, acel(DTaP) 94 Given Poliovirus Vaccine, Inactivated 05/31/98 Given Poliovirus Vaccine, Usdosikossp19 94 Given Poliovirus Vaccine, Bblwragelbz62 94 Given Poliovirus Vaccine, Kwdxnhnxmdx43 94 Given Haemophilus B conjugate (HbOC) vaccine 06/05/95 Given Haemophilus B conjugate (HbOC) vaccine 94 Given Haemophilus B conjugate (HbOC) vaccine 94 Given Haemophilus B conjugate (HbOC) vaccine 94 Given 1Admin Note: VIS dated 10/30/11 wduxx6Nmfym Note: VIS 11/14/06. given.3Admin Note: VIS dated 11/14/2006 nygfk7Xtain Note: vis 07.27.2009 jkeah4Osbgq Note: VIS 06/01/06 MGKUQ6Slmvb Note: gardasil #17Admin Note: VIS 01/2009 QGIIO2Hfgjj Note: VIS 12/27/08 DDJVD3Ibscv Note: VIS 2007 XLWLX49Qvtni Note: PDKV18Ueglg Note: MQMXDHL09Yipfm Note: oral fqufx75Ofhhv Note: oral fzrcd16Ooeid Note: oral polio Medications diclofenac 1% topical gel 1 application, Topically, 4 times a day, # 100 Gm, 0 Refills, Maintenance, 01/17/22 12:11:00 EDT, [facility][id number], Partial fill upon patient request if the prescription is for a schedule II opioid drug., 163, cm, 01/17/22 11:08:00 EDT... Start Date: 01/17/22 Status: Orderedescitalopram 10 mg oral tablet 1 tablet = 10 mg, By Mouth, Daily, take 1/2 pills for one week, then increase to full pill daily, # 30 tablet, 2 Refills, Maintenance, 03/08/22 12:08:00 EST, [facility][id number], Partial fill upon patient request if the prescription is... Start Date: 03/08/22 Status: OrderedhydrOXYzine hydrochloride 25 mg oral tablet 1 tablet = 25 mg, By Mouth, Daily at bedtime, PRN for anxiety/insomnia, may increase to 2 pills if needed, # 30 tablet, 2 Refills, Maintenance, 03/08/22 12:09:00 EST, Tablet, [facility] #[id number], Partial fill upon patient request if the prescr... Start Date: 03/08/22 Status: OrderedProAir HFA 90 mcg/inh inhalation aerosol with adapter 1, puffs, Inhalation, Every 4 hours, PRN, # 2 each, Refills 2, Tot. Refills 2, Maintenance, 01/17/2211:53:00 EDT, Aerosol, Route to Pharmacy Electronically, [id number], [facility] #[id number], 163, cm, 01/17/22 11:08:00... Start Date: 01/17/22 [...] 11 Refills, Maintenance, 10/13/21 12:08:00 EDT, Tablet, [facility] #[id number], 163, cm, 10/13/21 11:09:00 EDT, Height Start [...] Team PersonnelName: Aguila KUMAR, Nydia Calhoun Position: [facility] PCO Associate Professional Member Role: PCP Address: Address: [address] [place] [address]- Care Team Related PersonsName: ROEL ESCOBAR Address: home [address] [place] [address] Name: HOLDEN MENENDEZ Address: home [address] [place] [address]
--- OUTSIDE RECORDS SUMMARY | 2022-05-28 06:53 | XMS_ITS | Continuity of Care Document ---
:[address] [facility] Address [address] [place] [address]- Care Team Providers Name Role Phone Aguila KUMAR, Nydia Calhoun Primary Care Physician Encounter [facility] Date(s): 03/01/22 - 04/03/[address] [address] Encounter Diagnosis Strain of muscle, fascia and tendon of lower back, subsequent encounter (Final) - Discharge Disposition: A-D/C Home Attending Physician: Nydia Sheehan NP Admitting Physician: Nydia Sheehan NP Referring Physician: Riley Aly MD Allergies, Adverse Reactions, Alerts Substance Reaction [...] Tet/Diphth/Acel, Pertussis (oldterm)10 09/26/07 Given Varicella Virus Nneexsv98 09/26/07 Given Varicella Virus Vaccine 12/29/97 Given Measles/Mumps/Rubella Virus Vaccine 05/31/98 Given Measles/Mumps/Rubella Virus Vaccine 02/21/95 Given diphtheria/tetanus/pertussis, acel(DTaP) 05/31/98 Given diphtheria/tetanus/pertussis, acel(DTaP) 06/05/95 Given diphtheria/tetanus/pertussis, acel(DTaP) 94 Given diphtheria/tetanus/pertussis, acel(DTaP) 94 Given diphtheria/tetanus/pertussis, acel(DTaP) 94 Given Poliovirus Vaccine, Inactivated 05/31/98 Given Poliovirus Vaccine, Pcbikevfeah22 94 Given Poliovirus Vaccine, Trbehmksbpo22 94 Given Poliovirus Vaccine, Tsasgwxcdmt40 94 Given Haemophilus B conjugate (HbOC) vaccine 06/05/95 Given Haemophilus B conjugate (HbOC) vaccine 94 Given Haemophilus B conjugate (HbOC) vaccine 94 Given Haemophilus B conjugate (HbOC) vaccine 94 Given 1Admin Note: VIS dated 10/30/11 iqsyh9Hisjy Note: VIS 11/14/06. given.3Admin Note: VIS dated 11/14/2006 cqybv1Vbtkg Note: vis 07.27.2009 vjstw9Ptwxr Note: VIS 06/01/06 PZZJI1Kzjzn Note: gardasil #17Admin Note: VIS 01/2009 CWOZM9Ekzoc Note: VIS 12/27/08 FINIR1Ubiji Note: VIS 2007 DPMON93Zcybh Note: PXLP55Ojmol Note: OTEHXDA65Udfsh Note: oral kmitk47Qnkyj Note: oral dlwkq43Vjjyn Note: oral polio Medications diclofenac 1% topical gel 1 application, Topically, 4 times a day, # 100 Gm, 0 Refills, Maintenance, 01/17/22 12:11:00 EDT, Gel, [facility] #[id number], Partial fill upon patient request if the prescription is for a schedule II opioid drug., 163, cm, 01/17/22 11:08:00 EDT... Start Date: 01/17/22 Status: Orderedescitalopram 10 mg oral tablet 1 tablet = 10 mg, By Mouth, Daily, take 1/2 pills for one week, then increase to full pill daily, # 30 tablet, 2 Refills, Maintenance, 03/08/22 12:08:00 EST, Tablet, [facility] #[id number], Partial fill upon patient request if the prescription is... Start Date: 03/08/22 Status: OrderedhydrOXYzine hydrochloride 25 mg oral tablet 1 tablet = 25 mg, By Mouth, Daily at bedtime, PRN for anxiety/insomnia, may increase to 2 pills if needed, # 30 tablet, 2 Refills, Maintenance, 03/08/22 12:09:00 EST, Tablet, [facility] #[id number], Partial fill upon patient request if the prescr... Start Date: 03/08/22 Status: OrderedProAir HFA 90 mcg/inh inhalation aerosol with adapter 1, puffs, Inhalation, Every 4 hours, PRN, # 2 each, Refills 2, Tot. Refills 2, Maintenance, 01/17/2211:53:00 EDT, Aerosol, Route to Pharmacy Electronically, [id number], [facility] #[id number], 163, cm, 01/17/22 11:08:00... Start Date: 01/17/22 [...] 11 Refills, Maintenance, 10/13/21 12:08:00 EDT, Tablet, [facility] #[id number], 163, cm, 10/13/21 11:09:00 EDT, Height Start [...] Team PersonnelName: Aguila KUMAR, Nydia Calhoun Position: [facility] PCO Associate Professional Member Role: PCP Address: Address: [address] [place] [address]- Care Team Related PersonsName: ROEL ESCOBAR Address: home [address] [place] [address] Name: HOLDEN MENENDEZ Address: home [address] [facility] [address] [place] [address]
--- OUTSIDE RECORDS SUMMARY | 2022-05-28 06:53 | XMS_ITS | Continuity of Care Document ---
:1995 Author Organization [facility] Address [address] [place] [address]- Care Team Providers Name Role Phone Aguila KUMAR, Nydia Calhoun Primary Care Physician Encounter [facility] Date(s): 04/03/22 - 05/03/[address] [address]- Attending Physician: Nikkie Olivares Admitting Physician: AdmNikkie [...] Tet/Diphth/Acel, Pertussis (oldterm)10 09/26/07 Given Varicella Virus [id number] 09/26/07 Given Varicella Virus Vaccine 12/29/97 Given Measles/Mumps/Rubella Virus Vaccine 05/31/98 Given Measles/Mumps/Rubella Virus Vaccine 02/21/95 Given diphtheria/tetanus/pertussis, acel(DTaP) 05/31/98 Given diphtheria/tetanus/pertussis, acel(DTaP) 06/05/95 Given diphtheria/tetanus/pertussis, acel(DTaP) 94 Given diphtheria/tetanus/pertussis, acel(DTaP) 94 Given diphtheria/tetanus/pertussis, acel(DTaP) 94 Given Poliovirus Vaccine, Inactivated 05/31/98 Given Poliovirus Vaccine, [id number] 94 Given Poliovirus Vaccine, [id number] 94 Given Poliovirus Vaccine, [id number] 94 Given Haemophilus B conjugate (HbOC) vaccine 06/05/95 Given Haemophilus B conjugate (HbOC) vaccine 94 Given Haemophilus B conjugate (HbOC) vaccine 94 Given Haemophilus B conjugate (HbOC) vaccine 94 Given 1Admin Note: VIS dated 10/30/11 [id number] Note: VIS 11/14/06. given.3Admin Note: VIS dated 11/14/2006 [id number] Note: vis 07.27.2009 [id number] Note: VIS 06/01/06 [id number] Note: gardasil #17Admin Note: VIS 01/2009 [id number] Note: VIS 12/27/08 [id number] Note: VIS 2007 [id number] Note: PVEP50Nmbib Note: [id number] Note: oral [id number] Note: oral [id number] Note: oral polio Medications diclofenac 1% topical gel 1 application, Topically, 4 times a day, # 100 Gm, 0 Refills, Maintenance, 01/17/22 12:11:00 EDT, [id number], Partial fill upon patient request if the prescription is for a schedule II opioid drug., 163, cm, 01/17/22 11:08:00 EDT... Start Date: 01/17/22 Status: Orderedescitalopram 10 mg oral tablet 1 tablet = 10 mg, By Mouth, Daily, take 1/2 pills for one week, then increase to full pill daily, # 30 tablet, 2 Refills, Maintenance, 03/08/22 12:08:00 EST, [id number], Partial fill upon patient request if the prescription is... Start Date: 03/08/22 Status: OrderedhydrOXYzine hydrochloride 25 mg oral tablet 1 tablet = 25 mg, By Mouth, Daily at bedtime, PRN for anxiety/insomnia, may increase to 2 pills if needed, # 30 tablet, 2 Refills, Maintenance, 03/08/22 12:09:00 EST, Tablet, [facility] #[id number], Partial fill upon patient request if the prescr... Start Date: 03/08/22 Status: OrderedProAir HFA 90 mcg/inh inhalation aerosol with adapter 1, puffs, Inhalation, Every 4 hours, PRN, # 2 each, Refills 2, Tot. Refills 2, Maintenance, 01/17/2211:53:00 EDT, Aerosol, Route to Pharmacy Electronically, [id number], [facility] #[id number], 163, cm, 01/17/22 11:08:00... Start Date: 01/17/22 [...] 11 Refills, Maintenance, 10/13/21 12:08:00 EDT, Tablet, [facility] #[id number], 163, cm, 10/13/21 11:09:00 EDT, Height Start [...] Team PersonnelName: Aguila KUMAR, Nydia Calhoun Position: [facility] PCO Associate Professional Member Role: PCP Address: Address: [address] [place] [address]- Care Team Related PersonsName: ROEL ESCOBAR Address: home [address] [place] [address] Name: HOLDEN MENENDEZ Address: home [address] [place] [address]
--- NOTE | 2022-05-28 07:01 | PC.NURSE ---
assumed care of patient, pt resting comfortably in bed, VSS. plan for imaging.
--- NOTE | 2022-05-28 07:11 | ED.GENADULT ---
HPI - General Adult General Chief complaint: General Medical Stated complaint: Constipated Time Seen by Provider: 05/28/22 06:41 Source: patient Mode of arrival: ambulatory History of Present Illness HPI narrative: This is a 27-year-old female who comes in with 2 days of no bowel movements in states the constipation is unusual for her, she also describes significant discomfort in the lower abdomen/pelvis but denies any recent urinary frequency/burning/pain and denies any fever but states that she has had some chills with nausea that started this morning but denies any vomiting. She denies any vaginal discharge and is currently on control in last spotted 3 weeks ago. Related Data Previous Rx's Medication Instructions Recorded azithromycin 250 mg tablet 250 mg PO DAILY 6 days #6 tabs 05/05/22 benzocaine 15 mg lozenges 15 mg mucous membrane Q2-3H PRN 05/05/22 sore throat #18 ea Allergies Allergy/AdvReac Type Severity Reaction Status Date / Time Penicillins Allergy Severe Swelling Verified 05/05/22 01:10 Review of Systems Review of Systems: Pertinent positives and negatives as stated in HPI [facility] Past Medical History Source: nursing notes reviewed Social History Social History Advance Directives: No Advance Directives Information Provided: Yes Physical Exam ED Vital Signs: Vital Signs - 24 hr 05/28/22 06:44 Temperature 98.4 F Pulse Rate 80 Respiratory Rate 18 Blood Pressure 101/72 Pulse Oximetry 99 Oxygen Delivery Method Room Air BMI result Body Mass Index 30.9 VITAL SIGNS: Reviewed. GENERAL: Well developed, well nourished, in no acute distress. HEAD: Normocephalic/atraumatic EYES: PERRLA, EOMI EARS: Ext canals without abnormality OROPHARYNX: no oral lesions noted, posterior pharynx clear LUNGS: Normal breath sounds. No adventitious sounds or accessory muscle use. SpO2<99> CARDIOVASCULAR: Regular rate and rhythm without noted murmurs ABDOMEN: Soft, discomfort on deep palpation over the right lower quadrant/suprapubic, non-distended with bowel sounds. MUSCULOSKELETAL: No tenderness, deformities, or effusions noted on gross inspection. EXTREMITIES: No cyanosis, clubbing or edema. SKIN: Inspection of the skin reveals no rashes NEUROLOGIC: Alert and oriented x 4. Strength and sensation to light touch were grossly intact x 4. Medical Decision Making Medical Decision Making [facility] Narrative: 27-year-old female will rule out constipation/UTI/ectopic and lower clinical suspicion for appendicitis. On review of all investigations my interpretation is that patient has moderate constipation and will receive magnesium citrate but was given strict return precautions should she develop any fevers or additional symptoms to point towards an infectious etiology. Urinalysis and U preg are negative. Differential Diagnosis Differential Diagnoses: The differential diagnosis associated with the presentation includes Please to this cuss white above Lab Data [facility] Lab Attestation statement: I reviewed the patient's lab results. Please see the discussion above Labs: Lab Results 05/28/22 05/28/22 Range/Units 07:22 07:22 Urine Color Yellow Urine Appearance Clear Urine pH 5.5 (5.0-9.0) Ur Specific [place] >= 1.030 H (1.005-1.025) Urine Protein Negative (Neg-Trace) mg/dL Urine Glucose (UA) Negative (Negative) mg/dL Urine Ketones Negative (Negative) mg/dL Urine Blood Trace H (Negative) Urine Nitrite Negative (Negative) Ur Leukocyte Esterase Negative (Negative) Urine RBC 0-2 (0-2) /HPF Urine WBC 0-5 (0-5) /HPF Ur Squamous Epith Cells 0-2 (0-2) /HPF Urine Bacteria Trace (None Seen) Hyaline Casts 0-2 (0-2) /LPF Urine Test NEGATIVE (NEGATIVE) Radiology Impression Radiologist Impression: My interpretation is in agreement with radiology's impression of the imaging study. Discharge Plan Discharge Clinical Impression: Constipation Patient Disposition: Home, Self-Care Instructions: Constipation (ED), Fleet Enema (ED), High Fiber Diet (ED), Polyethylene Glycol 3350 (By mouth) Additional Instructions: 1. Please take the magnesium citrate when she gets home, you will need to probably stay at home for bathroom access. 2. It is unlikely that you would need to continue with MiraLax which is available [id number], but if he continued to have problems or have a recurrent issue with constipation later on MiraLax is a great resource in you can use this once a day. 3. Follow-up with your primary care provider in next 2-3 days. Please do not hesitate to return to the emergency room if you experience any additional symptoms such as fevers, vomiting, worsening pain. Prescriptions: No Action azithromycin 250 mg tablet 250 mg PO DAILY 6 Days Qty: 6 0RF Rx Instructions: start on day 2 of therapy benzocaine 15 mg lozenge 15 mg mucous membrane Q2-3H PRN (Reason: sore throat) Qty: 18 0RF
[2022-05-28 07:39] LABS: Urine Pregnancy NEGATIVE (NEGATIVE)
[2022-05-28 07:40] LABS: UPreg QC Valid YES
[2022-05-28 07:45] LABS: Appearance Urine Clear; Color Urine Yellow; Glucose Urine UA Negative (Negative); Leukocyte Esterase Urine Negative (Negative); Nitrite Urine Negative (Negative); PH 5.5 (5.0-9.0); Specific Gravity - Urine >= 1.030 (1.005-1.025); UMIC TRIGGER UACC YES; Urine Blood Trace (Negative); Urine Ketones Negative (Negative); Urine Protein Negative (Neg-Trace)
[2022-05-28 07:50] LABS: Bacteria Urine Trace (None Seen); Hyaline Casts Urine 0-2 /LPF (0-2); RBC Urine 0-2 /HPF (0-2); Squamous Epithelial Cell Urine 0-2 /HPF (0-2); WBC Urine 0-5 /HPF (0-5)
== END 2022-05-28 08:54 | disposition home or self-care (01) ==
PROVIDERS: Emergency Provider Student in an Organized Health Care Education/Training Program
DX: K59.00 Constipation, unspecified (principal); R10.13 Epigastric pain; Z79.899 Other long term (current) drug therapy
CPT/HCPCS: 74018; 81001; 81025; 99283

== ENCOUNTER 2023-02-12 08:17 | Emergency (ER) | payer OTHER, SELFPAY ==
--- NOTE | ~2023-02-12 | CT_ITS ---
EXAMINATION: CT ABDOMEN AND PELVIS WITHOUT CONTRAST CLINICAL INFORMATION: Right flank pain. COMPARISON: None available. TECHNIQUE: Multidetector volumetric imaging was performed from the superior aspect of the liver through the pubic symphysis. Sagittal and coronal reformatted images were obtained on the technologist's workstation. This CT examination was performed using dose optimization techniques as appropriate, variously including the following: *Automated exposure control *Adjustment of mA and/or kV according to patient size (this includes techniques or standardized protocols for targeted exams where dose is matched to indication/reason for exam; i.e. extremities or head) *Use of iterative reconstruction technique DLP: 582 mGy-cm FINDINGS: LUNG BASES: The visualized lung bases are unremarkable. LIVER, GALLBLADDER, AND BILIARY TREE: The noncontrast liver is normal in size and contour. No biliary ductal dilatation is present. The gallbladder is unremarkable with no evidence of radiopaque gallstones, gallbladder wall thickening, or obvious pericholecystic inflammatory changes. PANCREAS: Unremarkable. SPLEEN: Unremarkable. ADRENAL GLANDS: Unremarkable. KIDNEYS AND URETERS: The kidneys are normal in size, shape, and attenuation. No renal or ureteral calculus. No hydronephrosis perinephric stranding. BLADDER: Underdistended. GASTROINTESTINAL TRACT: Small and large bowel loops are of normal caliber. No small bowel obstruction. Appendix is within normal limits. Moderate fecal retention in the colon. ABDOMINAL WALL: No significant hernia is appreciated. LYMPH NODES: No bulky abdominal or pelvic lymphadenopathy. VASCULAR: Normal caliber abdominal aorta. PELVIC VISCERA: Anteverted uterus with intrauterine device in place. Trace free fluid in pelvis. OSSEOUS STRUCTURES: No destructive bone lesions. CT/CT abdomen pelvis wo IV con IMPRESSION: No nephrolithiasis or hydronephrosis.
[2023-02-12 08:22] VITALS: BP 111/66; PULSE 70; RESP 18; TEMP 37.1; O2SAT 100; BMI 28.0
--- NOTE | 2023-02-12 08:39 | PC.NURSE ---
low back pain worse w movement, ambulating slowly, no known injury, skin wpd, awaiting md wasserman
[2023-02-12 08:46] LABS: Appearance Urine Clear; Color Urine Yellow; Glucose Urine UA Negative (Negative); Leukocyte Esterase Urine Moderate (2+) (Negative); Nitrite Urine Negative (Negative); PH 6.5 (5.0-9.0); Specific Gravity - Urine 1.015 (1.005-1.025); UMIC TRIGGER UACC YES; Urine Blood Negative (Negative); Urine Ketones Negative (Negative); Urine Protein Negative (Neg-Trace)
[2023-02-12 08:48] LABS: Bacteria Urine None Seen (None Seen); Hyaline Casts Urine 0-2 /LPF (0-2); RBC Urine 0-2 /HPF (0-2); Squamous Epithelial Cell Urine 0-2 /HPF (0-2); UACC Culture Trigger YES; WBC Urine >50 /HPF (0-5)
--- NOTE | 2023-02-12 08:50 | ED_ITS ---
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 No fever, no chills, no nausea, no vomiting, no frequency urination patient feels some discomfort with urination. Related Data Previous Rx's Medication Instructions Recorded azithromycin 250 mg tablet 250 mg PO DAILY 6 days #6 tabs 05/05/22 benzocaine 15 mg lozenges 15 mg mucous membrane Q2-3H PRN 05/05/22 sore throat #18 ea nitrofurantoin 100 mg PO Q12H 7 days #14 caps 02/12/23 monohydrate/macrocrystals 100 mg capsule (Macrobid) Allergies Allergy/AdvReac Type Severity Reaction Status Date / Time Penicillins Allergy Severe Swelling Verified 02/12/23 08:27 Review of Systems 2 Review of Systems: All other systems are reviewed and are negative Constitutional: Reports as per HPI and Reports no additional constitutional complaints Eyes: Reports as per HPI and Reports no additional eye complaints Reports system reviewed and no additional complaints, except as documented Cardiovascular: Reports as per HPI and Reports no additional cardiovascular complaints Respiratory: Reports as per HPI and Reports no additional respiratory complaints Gastrointestinal: Reports as per HPI and Reports no additional gastrointestinal complaints Genitourinary: Reports no additional female genitourinary complaints Musculoskeletal: Reports no additional musculoskeletal complaints Skin/Breast: Reports system reviewed and no additional complaints, except as docu Psychiatric: Reports no additional psychiatric complaints Endocrine: Reports no additional endocrine complaints Hematologic/Lymphatic: Reports no additional hematologic/lymphatic complaints Allergic/Immunologic: Reports no additional allergic/immunologic complaints Reports system reviewed and no additional complaints, except as documented and Reports Abnormal speech present PMFSH Social History Social History Advance Directives: No Advance Directives Information Provided: Yes Physical Exam 2 Vital Signs: Vital Signs: Last Vital Signs Temp 98.7 F 02/12/23 08:22 Pulse 70 02/12/23 08:22 Resp 18 02/12/23 08:22 BP 111/66 02/12/23 08:22 Pulse Ox 100 02/12/23 08:22 O2 Del Method Room Air 02/12/23 08:22 BMI result Body Mass Index 28.0 Vital signs have been reviewed and appear to be correct. Blood pressure elevated. Heart rate normal. Respiratory rate normal. Temperature normal. Oxygen saturation normal. Appearance: Alert. Oriented X3. No acute distress. Head: Normal external exam. Normocephalic. Atraumatic. No Jackman signs noted. No raccoon eyes noted Eyes: PERRLA. EOMI. Conjunctiva and sclera normal. Eyelids normal. ENT: TM's Normal. Pharynx normal. Uvula midline. Moist mucous membranes. No trismus noted. No drooling noted. No muffled voice noted. Neck: Normal inspection. Neck supple. FROM. No adenopathy. Thyroid Normal. No meningeal signs. No neck mass noted. CVS: Normal heart rate and rhythm. Heart sound normal. No murmurs noted. Pulses normal throughout. Respiratory: No respiratory distress. Painless inspiration. Breath sounds normal. No wheezes/rales/rhonchi noted. Chest nontender. No accessory muscle usage noted or decreased air movement noted. Abdomen: Soft and nontender. Bowel sounds normal in all 4 quadrants. No distention noted. No organomegaly noted. No visible injury noted. Back: R CVA tenderness. Full range of motion noted. Skin: Skin warm and dry. Normal skin color. Normal skin turgor. No rashes/lesions/lacerations noted. Extremities: No lower extremity edema. Extremities exhibit normal range of motion. Extremities nontender. Neuro: Oriented X 3. Cranial nerve exam: II-XII are grossly intact No motor deficit. No sensory deficit. Reflexes normal. Course Reevaluation(s) Reevaluation #1: UTI/right flank pain consistent with right pyelonephritis, will start the patient on Macrobid and patient was instructed to drink plenty of fluids use NSAIDs if needed for pain. Time: 10:50 Medications Administered Discontinued Medications Generic Name Dose Route Start Last Admin Trade Name Freq PRN Reason Stop Dose Admin Oxycodone HCl 5 mg 02/12/23 08:48 02/12/23 09:31 Oxycodone Hcl Immed Release 5 Mg Tablet PO 02/12/23 08:49 5 mg ONCE ONE Administration Medical Decision Making Differential Diagnosis Differential Diagnoses: The differential diagnosis associated with the presentation includes (Pulled muscle, pyelonephritis, UTI, , kidney stone, acute appendicitis, electrolyte abnormality, severe anemia.) Admission/Observation Consideration of admission/observation: Escalation of care including admission/observation considered Lab Data MDM Lab Attestation statement: I reviewed the patient's lab results. 02/12/23 08:58 02/12/23 08:58 Labs: Lab Results 02/12/23 02/12/23 Range/Units 08:37 08:58 WBC 6.4 (4.8-10.8) X10*3/uL RBC 4.53 (4.20-5.50) X10*6/uL Hgb 13.5 (12.0-16.0) g/dl Hct 41.0 (37.0-47.0) % MCV 90.5 (80.0-98.0) fL MCH 29.8 (27.0-33.0) pg MCHC 32.9 (31.0-35.0) g/dl RDW 13.2 (11.0-16.0) % Plt Count 273 (160-400) X10*3/uL MPV 10.7 (9.4-12.3) fL Immature Gran % (Auto) 0.2 (0.0-0.4) % Neut % (Auto) 62.4 (45-73) % Lymph % (Auto) 29.5 (20-40) % [place] % (Auto) 5.4 (2-11) % Eos % (Auto) 2.2 (0-4) % Baso % (Auto) 0.3 (0-2) % Lymph # (Auto) 1.9 (1.2-4.9) X10*3/uL [place] # (Auto) 0.4 (0.1-1.2) X10*3/uL Eos # (Auto) 0.1 (0.0-0.4) X10*3/uL Baso # (Auto) 0.0 (0.0-0.2) X10*3/uL Abs Immat Gran (auto) 0.01 (0.00-0.03) X10*3/uL Absolute Neuts (auto) 4.0 (2.0-8.3) x10*3/uL Absolute Nucleated RBC 0.000 (0.0-0.012) X10*3/uL Nucleated RBC % (auto) 0.0 (0.0-0.2) /100WBC Sodium 139 (135-145) mmol/L Potassium 4.0 (3.3-5.1) mmol/L Chloride 108 (96-108) mmol/L Carbon Dioxide 22 (22-29) mmol/L Anion Gap 13 (12-20) BUN 6 L (9-16) mg/dL Creatinine 0.76 (0.5-1.4) mg/dL Estim Creat Clear Calc 108.5 Estimated GFR > 60 Random Glucose 84 (60-115) mg/dL Calcium 9.0 (8.4-10.2) mg/dL Total Bilirubin 0.4 (0.0-1.0) mg/dL Direct Bilirubin 0.1 (0.0-0.5) mg/dL AST 17 (5-31) U/L ALT 19 (0-31) U/L Alkaline Phosphatase 48 (39-117) U/L Total Protein 7.6 (6.5-8.0) g/dL Albumin 4.4 (3.5-5.0) g/dL Lipase 28 (8-78) U/L Urine Color Yellow Urine Appearance Clear Urine pH 6.5 (5.0-9.0) Ur Specific [place] 1.015 (1.005-1.025) Urine Protein Negative (Neg-Trace) mg/dL Urine Glucose (UA) Negative (Negative) mg/dL Urine Ketones Negative (Negative) mg/dL Urine Blood Negative (Negative) Urine Nitrite Negative (Negative) Ur Leukocyte Esterase Moderate (2+) H (Negative) Urine RBC 0-2 (0-2) /HPF Urine WBC >50 H (0-5) /HPF Ur Squamous Epith Cells 0-2 (0-2) /HPF Urine Bacteria None Seen (None Seen) Hyaline Casts 0-2 (0-2) /LPF Urine Test NEGATIVE (NEGATIVE) Independent Interpretation I performed an independent interpretation of an: CT Scan (Abdomen and pelvis: No acute intra-abdominal pathology) Radiology Impression Discussion of test interpretation with radiology: I have reviewed the radiologist's reading. Discharge Plan Discharge Clinical Impression: Pyelonephritis Patient Disposition: Home, Self-Care Instructions: Kidney Infection (ED) Additional Instructions: Drink plenty of fluid Prescriptions: New nitrofurantoin monohyd/m-cryst [Macrobid] 100 mg capsule 100 mg PO Q12H 7 Days Qty: 14 0RF Rx Instructions: must administer with a meal/food No Action azithromycin 250 mg tablet 250 mg PO DAILY 6 Days Qty: 6 0RF Rx Instructions: start on day 2 of therapy benzocaine 15 mg lozenge 15 mg mucous membrane Q2-3H PRN (Reason: sore throat) Qty: 18 0RF Stand Alone Forms: Work/School Release
[2023-02-12 09:00] LABS: Urine Pregnancy NEGATIVE (NEGATIVE)
[2023-02-12 09:01] LABS: UPreg QC Valid YES
[2023-02-12 09:07] LABS: MANUAL DIFF FLAG NO
[2023-02-12 09:10] LABS: Basophils Percent Auto 0.3 % (0-2); Eosinophils Absolute Auto 0.1 X10*3/uL (0.0-0.4); Eosinophils Percent Auto 2.2 % (0-4); Hemoglobin 13.5 g/dl (12.0-16.0); Imm Gran Abs Auto 0.01 X10*3/uL (0.00-0.03); Imm Gran Pct Auto 0.2 % (0.0-0.4); Lymphocytes Absolute Auto 1.9 X10*3/uL (1.2-4.9); Lymphocytes Percent Auto 29.5 % (20-40); Mean Corpuscular HGB Conc 32.9 g/dl (31.0-35.0); Mean Corpuscular Hemoglobin 29.8 pg (27.0-33.0); Mean Corpuscular Volume 90.5 fL (80.0-98.0); Mean Platelet Volume 10.7 fL (9.4-12.3); Monocytes Absolute Auto 0.4 X10*3/uL (0.1-1.2); Monocytes Percent Auto 5.4 % (2-11); Neutrophils Percent Auto 62.4 % (45-73); Platelet Count 273 X10*3/uL (160-400); Red Blood Count 4.53 X10*6/uL (4.20-5.50); Red Cell Distribution Width 13.2 % (11.0-16.0); White Blood Count 6.4 X10*3/uL (4.8-10.8)
[2023-02-12 09:30] LABS: Alanine Aminotransferase 19 U/L (0-31); Albumin Level 4.4 g/dL (3.5-5.0); Alkaline Phosphatase 48 U/L (39-117); Anion Gap 13 (12-20); Aspartate Amino Transferase 17 U/L (5-31); Bilirubin Direct 0.1 mg/dL (0.0-0.5); Bilirubin Total 0.4 mg/dL (0.0-1.0); Blood Urea Nitrogen 6 mg/dL (9-16); Carbon Dioxide 22 mmol/L (22-29); Chloride 108 mmol/L (96-108); Creatinine Clr Calc Pharmacy 108.5; Estimated Glomerular Filt Rate > 60; Glucose Random 84 mg/dL (60-115); Lipase 28 U/L (8-78); Sodium 139 mmol/L (135-145); Total Protein 7.6 g/dL (6.5-8.0)
[2023-02-12] MEDS: oxyCODONE HCl Immed Release 5 MG TABLET PO (09:31)
[2023-02-12] MEDS: Nitrofurantoin Monohyd/M-Cryst 100 MG CAPSULE PO (10:54)
== END 2023-02-12 11:02 | disposition home or self-care (01) ==
PROVIDERS: Emergency Provider Emergency Medicine
DX: N12 Tubulo-interstitial nephritis, not specified as acute or chronic (principal); R10.9 Unspecified abdominal pain; M54.50 Low back pain, unspecified; Z79.899 Other long term (current) drug therapy
CPT/HCPCS: 36415; 74176; 80048; 80076; 81001; 81025; 83690; 85025; 87086; 99283; 99284

== ENCOUNTER 2023-03-28 08:57 | Emergency (ER) | payer OTHER, SELFPAY ==
[2023-03-28 09:01] VITALS: BP 121/79; PULSE 99; RESP 17; TEMP 37.9; O2SAT 98; BMI 28.5
--- NOTE | 2023-03-28 09:11 | ED_ITS ---
HPI - General Adult General Chief complaint: Upper Respiratory Symptoms Stated complaint: Cough, chills Time Seen by Provider: 03/28/23 09:09 Source: patient Mode of arrival: ambulatory Limitations: no limitations History of Present Illness HPI narrative: Patient is a 28-year-old female with history of asthma presenting to the emergency department with complaint of nonproductive cough, nasal congestion, headaches, fatigue, sore throat, and chills since Sunday. States that she initially thought her symptoms were related to a dog allergy as she was around a dog on Sunday. States nasal congestion began on Sunday. Reports chills began this morning. Has taken ibuprofen and NyQuil with little relief. Reports that her mother and brother who she does not live with are sick with similar symptoms. Has not checked her temperature with thermometer at home. Denies any chest pain or palpitations. Denies any nausea, vomiting, diarrhea. Denies worst headache of life, denies headache worst at onset. complaint: Cough, chills Onset (ago): day(s) Location: head Radiation: non-radiation Severity: moderate Quality: aching Pain Consistency: intermittent Relieving factors: none Exacerbating factors: none Associated symptoms: cough Treatments prior to arrival: NSAID Related Data Previous Rx's Medication Instructions Recorded azithromycin 250 mg tablet 250 mg PO DAILY 6 days #6 tabs 05/05/22 benzocaine 15 mg lozenges 15 mg mucous membrane Q2-3H PRN 05/05/22 sore throat #18 ea nitrofurantoin 100 mg PO Q12H 7 days #14 caps 02/12/23 monohydrate/macrocrystals 100 mg capsule (Macrobid) Allergies Allergy/AdvReac Type Severity Reaction Status Date / Time Penicillins Allergy Severe Swelling Verified 03/28/23 09:01 Review of Systems Review of Systems: As per HPI. Yes all other systems are reviewed and are negative Constitutional: Constitutional: Reports as per HPI [facility] Social History Social History Smoked in Last 30 Days: No Use of substances other than those prescribed or required for medical reasons: No Advance Directives: No Patient : No Physical Exam ED Vital Signs: Vital Signs - 24 hr 03/28/23 09:01 Temperature 100.3 F Pulse Rate 99 Respiratory Rate 17 Blood Pressure 121/79 Pulse Oximetry 98 BMI result Body Mass Index 28.5 Vital signs have been reviewed and appear to be correct. Blood pressure normal. Heart rate normal. Respiratory rate normal. Temperature normal. Oxygen saturation normal. Const General: cooperative, healthy appearing and no acute distress Orientation/consciousness: oriented to person, oriented to place, oriented to time and patient oriented x3 Limitations: no limitations HENMT Head: Yes normocephalic and Yes atraumatic Ears: external ears normal and TM abnormal erythematous bilateral General nose exam: Normal external nose present Face and sinus: Yes face symmetric Mouth: Normal oral and palatal mucosa present, oropharynx normal and moist mucous membranes Throat: Yes uvula midline, No peritonsillar mass, Yes posterior oropharynx abnormal (erythema, no edema or exudate) and No uvular edema Eyes Pupils: Equal, round and reactive pupils present Neck Neck: Yes normal visual inspection and Yes supple Lymphatic: no lymphadenopathy noted Resp Effort & Inspection: normal respiratory effort and able to speak in complete sentences Auscultation: clear to auscultation bilaterally Cardio Rate: regular rate Rhythm: regular rhythm Heart sounds: S1 normal heart sound present and S2 normal heart sound present GI Palpation (GI): Soft to palpation and nontender Auscultation: normoactive bowel sounds General: Yes no CVA tenderness Back/Spine/Pelvis Back: no CVA tenderness Skin General skin exam: elasticity normal and turgor normal Neuro General: oriented to person, oriented to place, oriented to time, patient oriented x3, moves all extremities, no focal motor deficits and CN's II-XI intact bilaterally Cranial nerves: Yes Equal, round and reactive pupils present Cognition (Neuro): normal cognition Extrem General: Yes full ROM, Yes no pedal edema and Yes no calf tenderness Psych Mental Status: mental status grossly normal Affect: normal affect Thought process: Normal thought process present Medications Administered Discontinued Medications Generic Name Dose Route Start Last Admin Trade Name Freq PRN Reason Stop Dose Admin Acetaminophen 975 mg 03/28/23 09:25 03/28/23 09:34 Acetaminophen 325 Mg Tablet PO 03/28/23 09:26 975 mg ONCE ONE Administration Ibuprofen 600 mg 03/28/23 09:25 03/28/23 09:35 Ibuprofen 600 Mg Tablet PO 03/28/23 09:26 600 mg ONCE ONE Administration Medical Decision Making Medical Decision Making MDM Narrative: Patient is a 28-year-old female with history of asthma presenting to the emergency department with complaint of nonproductive cough, nasal congestion, headaches, fatigue, sore throat, and chills since Sunday. On exam patient is awake, A+Ox3, VS WNL, afebrile, normal neurological exam without focal deficits, physical exam findings as above. Given reported symptoms and physical exam findings, initial differential includes viral illness, Covid, flu, strep pharyngitis, bronchitis, sinusitis. Swab positive for influenza a, patient updated on results and all questions answered. Advised patient to ensure adequate rest, adequate fluid intake, alternate Tylenol ibuprofen. Return precautions discussed at bedside. Instructed patient to follow-up with primary care provider. Patient verbalized understanding of and agreement with plan. Differential Diagnosis Differential Diagnoses: The differential diagnosis associated with the presentation includes As per [facility]. Lab Data [facility] Lab Attestation statement: I reviewed the patient's lab results. As per [facility]. Labs: Lab Results 03/28/23 Range/Units 09:22 COVID-19 ([facility]) Negative (Negative) COVID-19 Clin Com See Note Influenza Type A ([facility]) Positive A (Negative) Influenza Type B ([facility]) Negative (Negative) Influenza A & B Note See Note S. pyogenes GrpA [facility] Negative (Negative) External Record Review External record reviewed: Inpatient record, Office record and Outpatient record Discharge Plan Discharge Clinical Impression: Influenza A Patient Disposition: Home, Self-Care Instructions: Influenza (DC) Additional Instructions: You were evaluated in the emergency department today for body aches and cough. Your flu test was positive for flu A. Influenza is a viral illness which will resolve on its own with time and rest. You should ensure adequate fluid intake, and can use Tylenol 650 mg or ibuprofen 600 mg every 6 hours as needed for fever or discomfort. If necessary, you can alternate these medications every 3 hours. For example, at noon take Tylenol, then at 3:00 p.m. take ibuprofen, then at 6:00 p.m. take Tylenol, etc.. Please follow-up with your primary care provider this week. Return to the emergency department if you develop chest pain, worsening shortness of breath, difficulty swallowing, fever 100.4? F or greater not improved with Tylenol/ibuprofen or any other concerning symptoms. Prescriptions: No Action azithromycin 250 mg tablet 250 mg PO DAILY 6 Days Qty: 6 0RF Rx Instructions: start on day 2 of therapy benzocaine 15 mg lozenge 15 mg mucous membrane Q2-3H PRN (Reason: sore throat) Qty: 18 0RF nitrofurantoin monohyd/m-cryst [Macrobid] 100 mg capsule 100 mg PO Q12H 7 Days Qty: 14 0RF Rx Instructions: must administer with a meal/food Stand Alone Forms: Work/School Release
--- NOTE | 2023-03-28 09:28 | PC.NURSE ---
swabs obtained and sent to lab.
[2023-03-28] MEDS: Acetaminophen 325 MG TABLET 975 MG PO (09:34)
[2023-03-28] MEDS: Ibuprofen 600 MG TABLET PO (09:35)
--- NOTE | 2023-03-28 09:36 | PC.NURSE ---
medication administered for pain/fever - will reassess.
[2023-03-28 09:46] LABS: IDNOW Serial# 08D9AD1C; Strep A Nucleic Acid Negative (Negative)
[2023-03-28 09:47] LABS: COVID-19 Test Negative (Negative); IDNOW Serial# BCCEAD1C
[2023-03-28 09:51] LABS: IDNOW Serial# 9DB6401D; Influenza A Positive (Negative); Influenza B2 Negative (Negative)
== END 2023-03-28 10:43 | disposition home or self-care (01) ==
PROVIDERS: Registered Nurse Emergency; Emergency Provider Emergency Medicine
DX: J10.1 Influenza due to other identified influenza virus with other respiratory manifestations (principal); R05.9 Cough, unspecified; R09.81 Nasal congestion; R51.9 Headache, unspecified; Z11.52 Encounter for screening for COVID-19; Z20.822 Contact with and (suspected) exposure to COVID-19; Z79.899 Other long term (current) drug therapy
CPT/HCPCS: 87502; 87635; 87651; 99283; 99284

== ENCOUNTER 2023-09-21 15:27 | Emergency (ER) | payer OTHER, SELFPAY ==
--- NOTE | ~2023-09-21 | CT_ITS ---
EXAMINATION: CT HEAD WITHOUT CONTRAST CLINICAL INFORMATION: Head injury. Neck pain. COMPARISON: None available. TECHNIQUE: Contiguous axial imaging was performed from the skull base to vertex without intravenous administration of contrast. This CT examination was performed using dose optimization techniques as appropriate, variously including the following: *Automated exposure control *Adjustment of mA and/or kV according to patient size (this includes techniques or standardized protocols for targeted exams where dose is matched to indication/reason for exam; i.e. extremities or head) *Use of iterative reconstruction technique DLP: 744 mGy-cm FINDINGS: There is no acute intracranial hemorrhage. There is no evidence of acute/subacute cerebral or cerebellar infarction. There is no midline shift or mass effect. There is no extra-axial fluid collection. The ventricles are normal in size. The orbits are symmetric and within normal limits. The calvarium is intact. The visualized paranasal sinuses and mastoid air cells are clear. CT/CT head/brain wo IV con IMPRESSION: No acute intracranial pathology.
--- NOTE | ~2023-09-21 | CT_ITS ---
EXAMINATION: CT CERVICAL SPINE WITHOUT CONTRAST CLINICAL INFORMATION: Neck pain. Head injury. COMPARISON: None available. TECHNIQUE: Noncontrast CT of the cervical spine was performed. This CT examination was performed using dose optimization techniques as appropriate, variously including the following: *Automated exposure control *Adjustment of mA and/or kV according to patient size (this includes techniques or standardized protocols for targeted exams where dose is matched to indication/reason for exam; i.e. extremities or head) *Use of iterative reconstruction technique DLP: 273 mGy-cm FINDINGS: There is straightening of the cervical lordosis. Alignment is otherwise anatomic. The facet joints are anatomically aligned. Vertebral body heights are maintained. Intervertebral disc space heights are preserved. The C1-C2 relationship is anatomic. The dens is intact. The prevertebral soft tissue is normal in appearance. Paraspinal soft tissue is normal in appearance. There is no acute cervical spine fracture. The lung apices are clear. The thyroid gland is normal in appearance. CT/CT cervical spine wo IV con IMPRESSION: No acute osseous cervical spine abnormality. Fleischner guidelines were followed.
[2023-09-21 15:45] VITALS: BP 118/71; PULSE 85; RESP 16; TEMP 36.9; O2SAT 99; BMI 27.5
--- NOTE | 2023-09-21 15:47 | ED_ITS ---
HPI - Head Injury General Chief complaint: Head Injury Stated complaint: work inj, head inj. R facial/ neck pain Time Seen by Provider: 09/21/23 16:00 Source: patient Mode of arrival: ambulatory Limitations: no limitations History of Present Illness HPI Narrative: patient is a 28-year-old female who presents to the emergency department for evaluation after head injury while at work today. she states at approximately 08:45 this morning, a plastics/ceramic tile that forms the car of a train fell down striking the top/ posterior portion of her head. She denies any loss of consciousness. She reports a posterior headache and pressure to the base of her skull. 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 She states as the day pro gressed her pain only increased. She denied taking any OTC oral analgesics. She denies any dizziness, lightheadedness, vision changes, nausea, vomiting, numbness or tingling of her extremities. Denies use of anticoagulants or known coagulation disorders. On her initial evaluation in triage she had tenderness upon palpation to the midline cervical spine and she was placed in a hard cervical spine collar Related Data Previous Rx's ?Medication ?Instructions ?Recorded azithromycin 250 mg tablet 250 mg PO DAILY 6 days #6 tabs 05/05/22 benzocaine 15 mg lozenges 15 mg mucous membrane Q2-3H PRN 05/05/22 sore throat #18 ea nitrofurantoin 100 mg PO Q12H 7 days #14 caps 02/12/23 monohydrate/macrocrystals 100 mg capsule (Macrobid) Allergies Allergy/AdvReac Type Severity Reaction Status Date / Time Penicillins Allergy Severe Swelling Verified 09/21/23 15:46 Review of Systems Review of Systems: Yes all other systems are reviewed and are negative [facility] Past Medical History Attestation statement: The following information was validated with the patient. Source: old records reviewed Social History Social History Advance Directives: No Advance Directives Information Provided: No Physical Exam Vital Signs: Vital Signs: Last Vital Signs Temp 98.4 F 09/21/23 15:45 Pulse 85 09/21/23 15:45 Resp 16 09/21/23 15:45 BP 118/71 09/21/23 15:45 Pulse Ox 99 09/21/23 15:45 O2 Del Method Room Air 09/21/23 15:45 BMI result Body Mass Index 27.5 Appearance: Alert.?Oriented to person, place and time. No acute distress.?Normal affect. Head: Normocephalic, atraumatic Eyes: Pupils equal, round and reactive to light.? EOMI. No nystagmus. ENT: Pharynx normal.?? Neck: Normal inspection.? Neck supple.?? Full range of motion noted to neck. Endorsed midline tenderness upon palpation though no palpable step-offs or deformities. CVS: Heart sounds normal. Normal heart rate and rhythm.? Pulses normal.?? Respiratory: No respiratory distress.? Lung sounds clear to auscultation bilaterally?? Abdomen: Soft and non-tender. Normoactive bowel sounds. ? Skin: Skin warm and dry.? Normal skin color.? Extremities: No lower extremity edema.? Neuro: Moves all extremities spontaneously. Sensation intact bilaterally. CN II- XII intact. No focal neuro deficits. Ambulates with normal steady gait. Course Course Course Narrative: This is an RME: Additional HPI, ROS, PE not included below will be deferred to primary provider. RME assessment and note performed by: Angelica Mcclendon PA-C This is a [id number]-female presenting to the ER with complaints of headache and neck pain. Reports that while she was at work this morning at 8:45AM, a panel struck the top of her head. Denies LOC. She reports headache and pressure in the back of her neck. She states that she was [facility] and was told to go back to work. She states that the pain has only worsened. No vomiting or changes in vision. She is not on blood thinners. She has TTP along her midline spine. Patient placed in C-spine collar and sent back to main emergency department Plan: CT head, CT cervical spine Medical Decision Making Medical Decision Making MDM Narrative: patient is a 28-year-old female who presents emergency department for evaluation of head injury without loss of consciousness as per HPI. On examination she has no focal neurological deficits. Had palpable midline cervical spine tenderness but no deformities or step-offs. She was placed in a hard cervical spine collar. CT of the head /cervical spine was obtained to evaluate for ICH, fracture, subluxation, which reveals no acute intracranial pathology and no cervical spine osseous abnormalities including fracture subluxation. Hard cervical spine collar was removed. She has full range of motion to the neck. Has no paraspinal muscle tenderness upon palpation. She is palpable tenderness along the base of the skull/ scalp. She does report a history of migraine headaches, and would like to avoid pain medication. I did suggest her considering the use of acetaminophen / ibuprofen to give her relief from her symptoms. She has not due to work again for the next 3 days. 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 Discussed symptoms associated with concussion, worrisome signs and symptoms that would warrant re-evaluation in the emergency department. At this time feel that she is stable for discharge home. Differential Diagnosis Differential Diagnoses: The differential diagnosis associated with the presentation includes ( See narrative above) Admission/Observation Consideration of admission/observation: Escalation of care including admission/observation considered ( see narrative above) Independent Interpretation I performed an independent interpretation of an: CT Scan ( No ICH or fracture) Radiology Impression Discussion of test interpretation with radiology: I have reviewed the radiologist's reading. Radiologist Impression: CT/CT head/brain wo IV con IMPRESSION: No acute intracranial pathology. CT/CT cervical spine wo IV con IMPRESSION: No acute osseous cervical spine abnormality. Prescription Management I considered prescription management with: Pain Medication ( see narrative above) Discharge Plan Discharge Clinical Impression: Concussion without loss of consciousness Patient Disposition: Home, Self-Care Instructions: Concussion (ED) Additional Instructions: You can take ibuprofen 200 mg, 3 tablets (600mg) every 6-8 hours as needed for pain, in addition to Tylenol 500 mg, 2 tablets (1,000mg) every 4-6 hours as needed for pain, but not to exceed 3 doses daily (3,000mg).? you may return to emergency department any new or worsening symptoms or concerns. Follow-up closely with your primary care provider, be sure that you contact your food checkers and cashiers supervisor to discuss any potential follow-up with workmen's comp for your return to work. Prescriptions: No Action azithromycin 250 mg tablet 250 mg PO DAILY 6 Days Qty: 6 0RF Rx Instructions: start on day 2 of therapy benzocaine 15 mg lozenge 15 mg mucous membrane Q2-3H PRN (Reason: sore throat) Qty: 18 0RF nitrofurantoin monohyd/m-cryst [Macrobid] 100 mg capsule 100 mg PO Q12H 7 Days Qty: 14 0RF Rx Instructions: must administer with a meal/food Referrals: Physician,Unknown J [Primary Care Provider] - Print Language: Swedish
[2023-09-21 18:30] VITALS: BP 117/68; PULSE 78; RESP 16; TEMP 36.8; O2SAT 98
== END 2023-09-21 18:31 | disposition home or self-care (01) ==
PROVIDERS: Emergency Provider Emergency Medicine
DX: S06.0X0A Concussion without loss of consciousness, initial encounter (principal); W20.8XXA Other cause of strike by thrown, projected or falling object, initial encounter; Y93.89 Activity, other specified; Y92.89 Other specified places as the place of occurrence of the external cause; Y99.0 Civilian activity done for income or pay
CPT/HCPCS: 70450; 72125; 99282; 99284

== ENCOUNTER 2024-03-31 07:41 | Emergency (ER) | payer OTHER, SELFPAY ==
--- NOTE | ~2024-03-31 | XR_ITS ---
EXAMINATION: XR SACRUM COCCYX 2 OR MORE VIEWS, XR LUMBAR SPINE 2-3 VIEWS CLINICAL INFORMATION: fall, pain COMPARISON: Abdominal radiograph 05/28/2022. CT abdomen and pelvis 02/12/2023. TECHNIQUE: 3 view series lumbar spine; AP and coned AP radiographs of the sacrum. FINDINGS: Lumbar spine: 5 lumbar type vertebral bodies are identified. Vertebral body height, disc spacing and alignment are normal in appearance. No facet arthropathic changes identified. A 3 mm punctate density is projected over the descending colon corresponding to findings may represent suture material or a biopsy clip in the same location visualized contemporaneous on the comparison CT of 02/12/2023. The sacrum appears intact. Visualized ribs appear intact. Visualized transverse processes appear intact. No fractures or acute appearing subluxation of the sacrum and coccyx identified. Sacrum and coccyx: Intrauterine device is noted. Sacrum appears intact. No arthropathic changes are diastases of the sacroiliac joints or symphysis pubis. XR/XR lumbar spine 2-3V IMPRESSION: Lumbar spine and sacrum/coccygeal radiographs: *Normal. No fractures or acute appearing subluxations. *Intrauterine device within the pelvis. Electronically signed by: Jan Zambrano MD 03/31/2024 11:29 AM [facility]
--- NOTE | ~2024-03-31 | XR_ITS ---
EXAMINATION: XR SACRUM COCCYX 2 OR MORE VIEWS, XR LUMBAR SPINE 2-3 VIEWS CLINICAL INFORMATION: fall, pain COMPARISON: Abdominal radiograph 05/28/2022. CT abdomen and pelvis 02/12/2023. TECHNIQUE: 3 view series lumbar spine; AP and coned AP radiographs of the sacrum. FINDINGS: Lumbar spine: 5 lumbar type vertebral bodies are identified. Vertebral body height, disc spacing and alignment are normal in appearance. No facet arthropathic changes identified. A 3 mm punctate density is projected over the descending colon corresponding to findings may represent suture material or a biopsy clip in the same location visualized contemporaneous on the comparison CT of 02/12/2023. The sacrum appears intact. Visualized ribs appear intact. Visualized transverse processes appear intact. No fractures or acute appearing subluxation of the sacrum and coccyx identified. Sacrum and coccyx: Intrauterine device is noted. Sacrum appears intact. No arthropathic changes are diastases of the sacroiliac joints or symphysis pubis. XR/XR sacrum coccyx min 2V IMPRESSION: Lumbar spine and sacrum/coccygeal radiographs: *Normal. No fractures or acute appearing subluxations. *Intrauterine device within the pelvis. Electronically signed by: Jan Zambrano MD 03/31/2024 11:29 AM [facility]
[2024-03-31 07:44] VITALS: BP 116/54; PULSE 52; RESP 16; TEMP 36.6; O2SAT 100; BMI 29.9
--- NOTE | 2024-03-31 07:45 | ED.EPISTAXIS ---
History of Present Illness General Chief Complaint: Back Pain/Injury Stated Complaint: lower back pain Time Seen by Provider: 03/31/24 07:50 Source: patient Mode of arrival: ambulatory Limitations: no limitations History of Present Illness HPI Narrative: this is a 29 years old female presented to the emergency department complaining of epistaxis. She has history of epistaxis she has been seen in this emergency room before and also [facility] for epistaxis. Location: Yes right nares Onset/current episode: Yes minute(s) (2) Duration: Yes now resolved Pertinent past history: Yes other (cad) Context: Yes history of previous nose bleed Treatment prior to arrival: Yes none Related Data Previous Rx's ?Medication ?Instructions ?Recorded azithromycin 250 mg tablet 250 mg PO DAILY 6 days #6 tabs 05/05/22 benzocaine 15 mg lozenges 15 mg mucous membrane Q2-3H PRN 05/05/22 sore throat #18 ea nitrofurantoin 100 mg PO Q12H 7 days #14 caps 02/12/23 monohydrate/macrocrystals 100 mg capsule (Macrobid) Allergies Allergy/AdvReac Type Severity Reaction Status Date / Time Penicillins Allergy Severe Swelling Verified 03/31/24 07:46 Review of Systems Constitutional: Constitutional: Reports no additional constitutional complaints ENT: Reports system reviewed and no additional complaints, except as documented Musculoskeletal: Musculoskeletal: Reports no additional musculoskeletal complaints PMFSH Past Medical History Attestation statement: The following information was validated with the patient. Physical Exam Vital Signs: Vital Signs: Last Vital Signs Temp 97.8 F 03/31/24 07:44 Pulse 52 03/31/24 07:44 Resp 16 03/31/24 07:44 BP 116/54 L 03/31/24 07:44 Pulse Ox 100 03/31/24 07:44 O2 Del Method Room Air 03/31/24 07:44 BMI result Body Mass Index 29.9 Const: General: cooperative Nutritional Appearance: average body habitus Orientation/consciousness: patient oriented x3 Limitations: no limitations HEENT: Head: Yes normal to inspection Ears: hearing grossly normal bilaterally General nose exam: Normal external nose present Face and sinus: Yes normal facial exam Mouth: Normal oral and palatal mucosa present Neck: Neck: Yes normal visual inspection and Yes full ROM Chest: Chest palpation & inspection: normal inspection of the chest Resp: Effort & Inspection: normal respiratory effort Cardio: Jugular venous distension: no JVD Rate: regular rate Rhythm: regular rhythm GI: Inspection: Yes normal to inspection Palpation (GI): Soft to palpation Auscultation: normal bowel sounds : General: Yes no CVA tenderness Back/Spine/Pelvis: Back: no CVA tenderness Neuro: General: patient oriented x3 Cranial nerves: Yes CN's II-XII intact bilaterally Motor exam (neuro): 5/5 motor strength present throughout Medical Decision Making Medical Decision Making MDM Narrative: Patient presented with epistaxis at this time she has no bleeding plan observation/afrin Differential Diagnosis Differential Diagnoses: The differential diagnosis associated with the presentation includes epistaxis thrombocytopenia coagulopathy which is unlikely the patient on prior epistaxis prior blood work did not show any low platelet of coagulopathy Discharge Plan Discharge Prescriptions: No Action azithromycin 250 mg tablet 250 mg PO DAILY 6 Days Qty: 6 0RF Rx Instructions: start on day 2 of therapy benzocaine 15 mg lozenge 15 mg mucous membrane Q2-3H PRN (Reason: sore throat) Qty: 18 0RF nitrofurantoin monohyd/m-cryst [Macrobid] 100 mg capsule 100 mg PO Q12H 7 Days Qty: 14 0RF Rx Instructions: must administer with a meal/food Print Language: Gabonese
--- NOTE | 2024-03-31 08:26 | ED_ITS ---
HPI - General Adult General Chief complaint: Back Pain/Injury Stated complaint: lower back pain Time Seen by Provider: 03/31/24 07:50 Source: patient Mode of arrival: ambulatory Limitations: no limitations History of Present Illness ED Provider: Kelly SOMERS narrative: Patient is a 29-year-old female presenting to the emergency department with complaint of lower back pain radiating down right leg since yesterday. 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 She denies a fall, but braced herself against the shower pineda. Initially felt ok, but when she attempted to get dressed after getting out of the shower, had severe pain. Denies saddle anesthesia or bowel or bladder incontinence. Denies fevers. Denies history of cancer, IV drug use. Took 800 mg of ibuprofen as well as a muscle relaxer at home without relief. complaint: back pain Onset (ago): hour(s) Location: back Radiation: distal Severity: severe Quality: aching Pain Consistency: constant Treatments prior to arrival: NSAID and other Related Data Previous Rx's ?Medication ?Instructions ?Recorded azithromycin 250 mg tablet 250 mg PO DAILY 6 days #6 tabs 05/05/22 benzocaine 15 mg lozenges 15 mg mucous membrane Q2-3H PRN 05/05/22 sore throat #18 ea nitrofurantoin 100 mg PO Q12H 7 days #14 caps 02/12/23 monohydrate/macrocrystals 100 mg capsule (Macrobid) cyclobenzaprine 10 mg tablet 10 mg PO TID PRN muscle spasm #14 03/31/24 tabs lidocaine 5 % topical patch 1 patch topical DAILY #15 ea 03/31/24 prednisone 20 mg tablet 40 mg (2 x 20 mg) PO DAILY #10 tabs 03/31/24 Allergies Allergy/AdvReac Type Severity Reaction Status Date / Time Penicillins Allergy Severe Swelling Verified 03/31/24 07:46 Review of Systems Review of Systems: As per HPI Yes all other systems are reviewed and are negative Constitutional: Constitutional: Reports as per HPI [facility] Social History Social History Advance Directives: No Advance Directives Information Provided: No Physical Exam ED Vital Signs: Vital Signs - 24 hr 03/31/24 07:44 03/31/24 08:49 03/31/24 12:29 Temperature 97.8 F 98.2 F Pulse Rate 52 53 Respiratory Rate 16 18 18 Blood Pressure 116/54 L 103/56 L Pulse Oximetry 100 98 Oxygen Delivery Method Room Air Room Air BMI result Body Mass Index 29.9 Vital signs have been reviewed and appear to be correct. Blood pressure normal. Heart rate normal. Respiratory rate normal. Temperature normal. Oxygen saturation normal. Const General: cooperative, healthy appearing and no acute distress Orientation/consciousness: oriented to person, oriented to place, oriented to time and patient oriented x3 Limitations: no limitations HENMT Head: Yes normocephalic and Yes atraumatic Ears: external ears normal General nose exam: Normal external nose present Face and sinus: Yes face symmetric Mouth: oropharynx normal and moist mucous membranes Throat: Yes uvula midline Eyes Pupils: Equal, round and reactive pupils present Neck Neck: Yes normal visual inspection and Yes supple Resp Effort & Inspection: normal respiratory effort and able to speak in complete sentences Auscultation: clear to auscultation bilaterally Cardio Rate: regular rate Rhythm: regular rhythm Heart sounds: S1 normal heart sound present and S2 normal heart sound present GI Palpation (GI): Soft to palpation and nontender Auscultation: normoactive bowel sounds General: Yes no CVA tenderness Back/Spine/Pelvis Back: no CVA tenderness Thoracic/Lumbar Spine: thoracic and lumbar spine normal to inspection, pain with thoraco-lumbar ROM, paraspinal muscle tenderness on the right in the upper lumbar and in the mid lumbar, thoraco-lumbar ROM limited (in all directions due to pain), No thoracic spinal tenderness, No lumbar spinal tenderness and straight leg raise positive right Skin General skin exam: elasticity normal and turgor normal Neuro General: oriented to person, oriented to place, oriented to time, patient oriented x3, moves all extremities, no focal motor deficits and CN's II-XI intact bilaterally Cranial nerves: Yes Equal, round and reactive pupils present Cognition (Neuro): normal cognition Extrem General: Yes full ROM, Yes no pedal edema and Yes no calf tenderness Psych Mental Status: mental status grossly normal Affect: normal affect Thought process: Normal thought process present Medications Administered Discontinued Medications Generic Name Dose Route Start Last Admin Trade Name Freq PRN Reason Stop Dose Admin Diazepam 2 mg 03/31/24 10:56 03/31/24 11:33 Diazepam 2 Mg Tablet PO 03/31/24 10:57 2 mg ONCE ONE Administration Morphine Sulfate 4 mg 03/31/24 07:55 03/31/24 08:49 Morphine Sulfate 4 Mg/Ml Cartridge IM 03/31/24 07:56 4 mg ONCE ONE Administration Protocol Prednisone 50 mg 03/31/24 07:55 03/31/24 08:47 Prednisone 10 Mg Tablet PO 03/31/24 07:56 50 mg ONCE ONE Administration Medical Decision Making Medical Decision Making [facility] Narrative: Patient is a 29-year-old female presenting to the emergency department with complaint of lower back pain radiating down right leg since yesterday. On exam patient is awake, A+Ox3, VS WNL, afebrile, normal neurological exam without focal deficits, physical exam findings as above. Given reported symptoms and physical exam findings, initial differential includes lumbar strain, lumbar radiculopathy, degenerative disc disease, disc herniation, spinal stenosis, spondylosis. Less likely vertebral fracture. Do not suspect malignancy/mass, SEA, cauda equina/cord compression. X-rays lumbar/coccyx/sacrum notable for no evidence of fracture or subluxation. My interpretation is in agreement with the radiologist's interpretation. Results discussed with patient and all questions answered. Will treat with short course of prednisone, cyclobenzaprine and lidocaine patches. Advised patient follow-up with PCP she may require physical therapy to improve symptoms. Return precautions discussed at bedside. Patient verbalized understanding of and agreement with plan. Differential Diagnosis Differential Diagnoses: The differential diagnosis associated with the presentation includes As per [facility] Lab Data [facility] Lab Attestation statement: I reviewed the patient's lab results. As per [facility] Labs: Lab Results 03/31/24 Range/Units 08:13 Urine Test NEGATIVE (NEGATIVE) Independent Interpretation I performed an independent interpretation of an: Plain X-Ray Interpretation: No acute fracture or subluxation to lumbar spine, sacrum, coccyx Radiology Impression Discussion of test interpretation with radiology: I have reviewed the radiologist's reading. Radiologist Impression: XR/XR sacrum coccyx min 2V IMPRESSION: Lumbar spine and sacrum/coccygeal radiographs: *Normal. No fractures or acute appearing subluxations. *Intrauterine device within the pelvis. External Record Review External record reviewed: Inpatient record, Office record and Outpatient record Prescription Management I considered prescription management with: Pain Medication and Other Discharge Plan Discharge Clinical Impression: Strain of lumbar region Patient Disposition: Home, Self-Care Instructions: Low Back Strain (ED), Acute Low Back Pain (ED), Lower Back Exercises (ED) Additional Instructions: You were evaluated in the emergency department today for back pain. Your evaluation did not show signs of medical conditions requiring emergent intervention at this time. We recommended that you use ibuprofen or Tylenol per package directions every 6 hours as needed for pain. If necessary, you can alternate these medications so that you take one medication every 3 hours. For instance, at noon take ibuprofen, then at 3:00 p.m. take Tylenol, then at 6:00 p.m. take ibuprofen. You have been prescribed a muscle relaxer which you may take every 8 hours as needed for spasms. You have been prescribed 5% topical lidocaine patches which you can wear for up to 12 hours in a 24 hour period. Do not apply heat directly over the patches. You have been prescribed a short course of prednisone which is a steroid to decrease inflammation. Please schedule an appointment for follow-up with your primary care physician this week for further evaluation of your symptoms. Return to the emergency department if you experience worsening back pain, difficulty walking, fevers, numbness, tingling, incontinence, groin numbness or tingling, or any other concerning symptoms. Prescriptions: New cyclobenzaprine 10 mg tablet 10 mg PO TID PRN (Reason: muscle spasm) Qty: 14 0RF lidocaine 5 % adhesive patch,medicated 1 patch topical DAILY Qty: 15 0RF Rx Instructions: leave on most painful area for up to 12 hrs prednisone 20 mg tablet 40 mg PO DAILY Qty: 10 0RF No Action azithromycin 250 mg tablet 250 mg PO DAILY 6 Days Qty: 6 0RF Rx Instructions: start on day 2 of therapy benzocaine 15 mg lozenge 15 mg mucous membrane Q2-3H PRN (Reason: sore throat) Qty: 18 0RF nitrofurantoin monohyd/m-cryst [Macrobid] 100 mg capsule 100 mg PO Q12H 7 Days Qty: 14 0RF Rx Instructions: must administer with a meal/food Stand Alone Forms: Work/School Release Print Language: Cypriot
[2024-03-31 08:27] LABS: UPreg QC Valid YES; Urine Pregnancy NEGATIVE (NEGATIVE)
--- NOTE | 2024-03-31 08:30 | PC.NURSE ---
attempted to medicate pt, pt in XR.
[2024-03-31] MEDS: predniSONE 10 MG TABLET 50 MG PO (08:47)
[2024-03-31 08:49] VITALS: RESP 18
[2024-03-31] MEDS: Morphine Sulfate 4 MG/ML CARTRIDGE IM (08:49)
--- NOTE | 2024-03-31 08:52 | PC.NURSE ---
pt medicated for 10/10 lower back pain
[2024-03-31] MEDS: diazePAM 2 MG TABLET PO (11:33)
[2024-03-31 12:29] VITALS: BP 103/56; PULSE 53; RESP 18; TEMP 36.8; O2SAT 98
[2024-03-31 13:16] VITALS: BP 103/56; PULSE 53; RESP 18; TEMP 36.8; O2SAT 98
== END 2024-03-31 13:44 | disposition home or self-care (01) ==
PROVIDERS: Registered Nurse Emergency; Emergency Provider Emergency Medicine
DX: S39.012A Strain of muscle, fascia and tendon of lower back, initial encounter (principal); W18.49XA Other slipping, tripping and stumbling without falling, initial encounter; Y93.E1 Activity, personal bathing and showering; Y92.031 Bathroom in apartment as the place of occurrence of the external cause; Y99.9 Unspecified external cause status
CPT/HCPCS: 72100; 72220; 81025; 96372; 99284; J2270

== ENCOUNTER 2024-07-03 09:16 | Emergency (ER) | payer OTHER, SELFPAY ==
--- NOTE | ~2024-07-03 | CT_ITS ---
CLINICAL HISTORY: low back pain CT lumbar spine without contrast Comparison: None Findings: Normal alignment without acute fracture or significant degenerative lumbar spine changes. Short pedicles (AP dimension of the bony central canal measures up to 9 mm) at L4 and L5 levels. IMPRESSION: Normal alignment without acute fracture or significant degenerative lumbar spine changes. Short pedicles (AP dimension of the bony central canal measures up to 9 mm) at L4 and L5 levels. This document has been electronically signed by: Erika Conner MD on 07/03/2024 12:51:35
[2024-07-03 09:42] VITALS: BP 161/65; PULSE 67; RESP 22; TEMP 37.1; O2SAT 98; BMI 31.9
[2024-07-03 10:03] LABS: MANUAL DIFF FLAG NO
[2024-07-03 10:04] LABS: Basophils Percent Auto 0.4 % (0-2); Eosinophils Absolute Auto 0.2 X10*3/uL (0.0-0.4); Eosinophils Percent Auto 4.4 % (0-4); Hematocrit 39.4 % (37.0-47.0); Imm Gran Abs Auto 0.01 X10*3/uL (0.00-0.03); Imm Gran Pct Auto 0.2 % (0.0-0.4); Lymphocytes Percent Auto 38.8 % (20-40); Mean Corpuscular Hemoglobin 29.6 pg (27.0-33.0); Mean Corpuscular Volume 89.7 fL (80.0-98.0); Mean Platelet Volume 10.2 fL (9.4-12.3); Monocytes Absolute Auto 0.3 X10*3/uL (0.1-1.2); Monocytes Percent Auto 6.2 % (2-11); Neutrophils Absolute Auto 2.5 x10*3/uL (2.0-8.3); Platelet Count 285 X10*3/uL (160-400); Red Blood Count 4.39 X10*6/uL (4.20-5.50); Red Cell Distribution Width 12.6 % (11.0-16.0)
--- NOTE | 2024-07-03 10:28 | ED_ITS ---
HPI - General Adult General Chief complaint: Abdominal Pain Stated complaint: Lower abd pain Time Seen by Provider: 07/03/24 10:28 Source: patient Mode of arrival: ambulatory Limitations: no limitations History of Present Illness ED Provider: Diana Wallace PA-C HPI narrative: Patient is a 29 year old female with no significant past medical history who presents to the ED today with chief complaint of lower back pain. Patient states that one month ago she began experiencing lower back pain for which she was seen and later subsided with a course of steroids/muscle relaxers. About 1 week ago the patient again began experiencing lower back pain that has been increasing in severity. The pain is constant, sharp, and radiating to the anterior pelvis and down the right thigh. She is able to ambulate. + pain with straight leg raise. She also endorses that her right leg feels like its falling asleep intermittently. She reports no incidents that could have led to injury. She denies difficulty with urination and last bowel movement was yesterday. She denies fevers, nausea, or vomiting. Onset (ago): week(s) (1 week) Location: back Radiation: abdomen Quality: sharp Pain Consistency: constant Relieving factors: none Exacerbating factors: movement Associated symptoms: denies other symptoms Treatments prior to arrival: none Related Data Previous Rx's ?Medication ?Instructions ?Recorded azithromycin 250 mg tablet 250 mg PO DAILY 6 days #6 tabs 05/05/22 benzocaine 15 mg lozenges 15 mg mucous membrane Q2-3H PRN 05/05/22 sore throat #18 ea nitrofurantoin 100 mg PO Q12H 7 days #14 caps 02/12/23 monohydrate/macrocrystals 100 mg capsule (Macrobid) cyclobenzaprine 10 mg tablet 10 mg PO TID PRN muscle spasm #14 03/31/24 tabs lidocaine 5 % topical patch 1 patch topical DAILY #15 ea 03/31/24 prednisone 20 mg tablet 40 mg (2 x 20 mg) PO DAILY #10 tabs 03/31/24 cyclobenzaprine 5 mg tablet 5 mg PO TID PRN low back pain 7 07/03/24 days #21 tabs prednisone 20 mg tablet See Rx Instructions .Route 07/03/24 .COMPLEX 12 days #26 tabs Allergies Allergy/AdvReac Type Severity Reaction Status Date / Time Penicillins Allergy Severe Swelling Verified 07/03/24 09:45 Review of Systems 2 Review of Systems: Yes all other systems are reviewed and are negative Constitutional: Constitutional: Reports as per HPI Eyes: Eyes: Reports no additional eye complaints, Denies blurry vision, Denies change in vision, Denies diplopia, Denies eye discharge, Denies loss of vision and Denies eye pain Cardiovascular: Cardiovascular: Reports no additional cardiovascular complaints, Denies chest pain, Denies lightheadedness, Denies Loss of Consciousness and Denies dyspnea Respiratory: Respiratory: Reports no additional respiratory complaints and Denies dyspnea Gastrointestinal: Gastrointestinal: Reports no additional gastrointestinal complaints, Denies abdominal pain, Denies melena, Denies hematochezia, Denies change in bowel habits and Denies change in stool character Genitourinary: Genitourinary: Denies hematuria, Denies urinary frequency, Denies dysuria, Denies urinary incontinence, Denies urinary hesitancy and Denies urinary urgency Musculoskeletal: Musculoskeletal: Reports as per HPI, Reports back pain, Reports numbness, Reports radiating pain into limb and Reports tingling Neurologic: Denies loss of vision, Reports numbness and Reports tingling Psychiatric: Psychiatric: Reports no additional psychiatric complaints Endocrine: Endocrine: Reports no additional endocrine complaints Hematologic/Lymphatic: Hematologic/Lymphatic: Reports no additional hematologic/lymphatic complaints Allergic/Immunologic: Allergic/Immunologic: Reports no additional allergic/immunologic complaints PMFSH Past Medical History Attestation statement: The following information was validated with the patient. Source: old records reviewed and nursing notes reviewed Physical Exam ED Vital Signs: Vital Signs - 24 hr 07/03/24 09:42 07/03/24 12:32 07/03/24 13:11 Temperature 98.8 F 97.6 F 97.6 F Pulse Rate 67 61 61 Respiratory Rate 22 H 14 14 Blood Pressure 161/65 H 93/45 L 93/45 L Pulse Oximetry 98 98 98 Oxygen Delivery Method Room Air Room Air Room Air BMI result Body Mass Index 31.9 Const General: cooperative, healthy appearing, well developed, alert, awake and in distress Nutritional Appearance: well nourished Orientation/consciousness: patient oriented x3 Limitations: no limitations HENMT Head: Yes normal to inspection and Yes atraumatic Ears: hearing grossly normal bilaterally and external ears normal General nose exam: Normal external nose present, no nasal discharge noted and no epistaxis Face and sinus: Yes normal facial exam, No abrasion and No laceration Mouth: Normal oral and palatal mucosa present, no drooling and no muffled voice Eyes General: appearance normal, both eyes and all related structures Periorbital: periorbital findings normal Eyelids: Yes eyelids normal Conjunctivae: conjunctivae normal Pupils: Equal, round and reactive pupils present EOM: EOMs intact bilaterally Neck Neck: Yes normal visual inspection, Yes full ROM and Yes no lymphadenopathy Chest Chest palpation & inspection: normal inspection of the chest Resp Effort & Inspection: normal respiratory effort and able to speak in complete sentences GI Inspection: Yes normal to inspection Palpation (GI): Soft to palpation, nontender, no guarding and not rigid Back/Spine/Pelvis Thoracic/Lumbar Spine: straight leg raise positive (right side) Neuro General: patient oriented x3, moves all extremities and CN's II-XI intact bilaterally Cranial nerves: Yes Equal, round and reactive pupils present Cognition (Neuro): normal cognition Extrem General: Yes normal to inspection, Yes full ROM and Yes capillary refill normal Psych Appearance: grossly normal Mental Status: mental status grossly normal Affect: normal affect Attitude: cooperative Thought process: Normal thought process present Thought content: Normal thought content present Insight: Good insight present (Psych) Medications Administered Discontinued Medications Generic Name Dose Route Start Last Admin Trade Name Freq PRN Reason Stop Dose Admin Diazepam 2.5 mg 07/03/24 10:48 07/03/24 11:18 Diazepam 10 Mg/2 Ml Cartridge IVPUSH 07/03/24 10:49 2.5 mg STAT STA Administration Methylprednisolone Sodium Succinate 60 mg 07/03/24 10:48 07/03/24 11:17 Methylprednisolone Sod Succ 125 Mg/2 Ml Vial IVPUSH 07/03/24 10:49 60 mg ONCE ONE Administration Medical Decision Making Medical Decision Making [facility] Narrative: Patient is a 29 year old assigned female at with no reported medical history presenting to the emergency department today with right sided low back pain. Patient's physical exam was as noted in the physical exam portion of this note. Patient's blood work was unremarkable. Patient's urine showed no acute process. Patient's lumbar CT showed no acute process. I explained my physical exam findings as well as all test results to the patient. I answered all questions asked by the patient. Patient received IV solu-medrol and valium which, upon re-evaluation, she stated it helped her symptoms significantly. I stressed the importance of the patient taking her medication as directed (either prescribed or as the over the counter packaging recommends). I stressed the importance of the patient following up with her primary care provider and a early childhood specialist. I stressed the importance of the patient returning to the emergency department immediately if her symptoms were to worsen or if she were to develop any dizziness, shortness of breath, difficulty breathing, chest pain, blurry vision, loss of vision, nausea, vomiting, abdominal pain, fever, chills, back pain, or any other complaints. Patient verbalized agreement and understanding with this treatment plan and discharge. Differential Diagnosis Differential Diagnoses: The differential diagnosis associated with the presentation includes Lumbar radiculopathy Right sided low back pain Acute low back pain Muscle strain Muscle sprain DDD Admission/Observation Consideration of admission/observation: Escalation of care including admission/observation considered Patient would have been admitted to the hospital had her work up had any findings where hospital admission was appropriate and her clinical presentation warranted hospital admission. Lab Data [facility] Lab Attestation statement: I reviewed the patient's lab results. My interpretation of these results are in the [facility] Rationale portion of this note. 07/03/24 09:53 07/03/24 09:53 Labs: Lab Results 07/03/24 07/03/24 Range/Units 09:53 11:21 WBC 5.0 (4.8-10.8) X10*3/uL RBC 4.39 (4.20-5.50) X10*6/uL Hgb 13.0 (12.0-16.0) g/dl Hct 39.4 (37.0-47.0) % MCV 89.7 (80.0-98.0) fL MCH 29.6 (27.0-33.0) pg MCHC 33.0 (31.0-35.0) g/dl RDW 12.6 (11.0-16.0) % Plt Count 285 (160-400) X10*3/uL MPV 10.2 (9.4-12.3) fL Immature Gran % (Auto) 0.2 (0.0-0.4) % Neut % (Auto) 50.0 (45-73) % Lymph % (Auto) 38.8 (20-40) % Riley % (Auto) 6.2 (2-11) % Eos % (Auto) 4.4 H (0-4) % Baso % (Auto) 0.4 (0-2) % Lymph # (Auto) 2.0 (1.2-4.9) X10*3/uL Riley # (Auto) 0.3 (0.1-1.2) X10*3/uL Eos # (Auto) 0.2 (0.0-0.4) X10*3/uL Baso # (Auto) 0.0 (0.0-0.2) X10*3/uL Abs Immat Gran (auto) 0.01 (0.00-0.03) X10*3/uL Absolute Neuts (auto) 2.5 (2.0-8.3) x10*3/uL Absolute Nucleated RBC 0.000 (0.0-0.012) X10*3/uL Nucleated RBC % (auto) 0.0 (0.0-0.2) /100WBC Sodium 138 (135-145) mmol/L Potassium 4.1 (3.3-5.1) mmol/L Chloride 109 H (96-108) mmol/L Carbon Dioxide 23 (22-29) mmol/L Anion Gap 10 L (12-20) BUN 11 (9-16) mg/dL Creatinine 0.76 (0.5-1.4) mg/dL Estim Creat Clear Calc 113.7 Estimated GFR > 60 Random Glucose 95 (60-115) mg/dL Calcium 9.2 (8.4-10.2) mg/dL Total Bilirubin 0.3 (0.0-1.0) mg/dL AST 20 (5-31) U/L ALT 23 (0-31) U/L Alkaline Phosphatase 42 (39-117) U/L Total Protein 8.1 H (6.5-8.0) g/dL Albumin 4.5 (3.5-5.0) g/dL Lipase 27 (8-78) U/L Beta HCG, Quant < 2 mIU/mL Urine Color Yellow Urine Appearance Clear Urine pH 5.5 (5.0-9.0) Ur Specific [place] 1.025 (1.005-1.025) Urine Protein Negative (Neg-Trace) mg/dL Urine Glucose (UA) Negative (Negative) mg/dL Urine Ketones Negative (Negative) mg/dL Urine Blood Negative (Negative) Urine Nitrite Negative (Negative) Ur Leukocyte Esterase Negative (Negative) Urine RBC 0-2 (0-2) /HPF Urine WBC 0-5 (0-5) /HPF Ur Squamous Epith Cells 0-2 (0-2) /HPF Urine Bacteria None Seen (None Seen) Hyaline Casts 0-2 (0-2) /LPF Influenza Type A (PCR) NEGATIVE (Negative) Influenza Type B (PCR) NEGATIVE (Negative) RSV RNA Qual (PCR) NEGATIVE (Negative) SARS-CoV-2 RNA (RT-PCR) NEGATIVE (Negative) Independent Interpretation I performed an independent interpretation of an: CT Scan Interpretation: My interpretation is in agreement with the radiologist's impression of this imaging study. L Report Number: [id number]: Total DLP = 497.00 mGy-cm CLINICAL HISTORY: low back pain CT lumbar spine without contrast Comparison: None Findings: Normal alignment without acute fracture or significant degenerative lumbar spine changes. Short pedicles (AP dimension of the bony central canal measures up to 9 mm) at L4 and L5 levels. IMPRESSION: Normal alignment without acute fracture or significant degenerative lumbar spine changes. Short pedicles (AP dimension of the bony central canal measures up to 9 mm) at L4 and L5 levels. This document has been electronically signed by: Erika Conner MD on 07/03/2024 12:51:35 Dictated By: Erika Conner MD Signed By: Electronically signed by Erika Conner MD 07/03/24 1256 Radiology Impression Discussion of test interpretation with radiology: I have reviewed the radiologist's reading. Prescription Management I considered prescription management with: Pain Medication (patient prescribed pain medication) Discharge Plan Discharge Clinical Impression: Low back pain Patient Disposition: Home, Self-Care Instructions: Acute Low Back Pain (ED) Additional Instructions: Follow up with your primary care provider and a early childhood specialist. Take your medication as prescribed. Return to the emergency department immediately if your symptoms worsen or if you develop any numbness, tingling, dizziness, shortness of breath, difficulty breathing, chest pain, blurry vision, loss of vision, nausea, vomiting, abdominal pain, fever, chills, back pain, or any other complaints. Please see the information below about our Patient Portal. If you are not yet enrolled in the [facility] Patient Portal, you will receive an enrollment email invitation following your visit to any [facility] setting. You may also self-enroll in the Patient Portal by visiting our website: [email or web address] The following information is required to access the Patient Portal: - Your [facility] Medical Record Number - Your personal home email address (must match what is in your electronic medical record, Registration staff can assist with this) - Name - Date of Capabilities of the Patient Portal: - Message some providers - View upcoming appointments - Access your health summary, medical history, and visit history - View current conditions and allergies - View procedure and lab results - View your medications, including guidelines, side effects, and precautions - Complete pre-appointment questionnaires requested by your provider - Ready summary reports of your office visits and procedures To access the Patient Portal Mobile Mela, follow these directions: - Search Babble in the Mela Store or Hytle Store - Download the Mela - Search for [facility] - Enter your login/password Prescriptions: New cyclobenzaprine 5 mg tablet 5 mg PO TID PRN (Reason: low back pain) 7 Days Qty: 21 0RF prednisone 20 mg tablet See Rx Instructions .ROUTE .COMPLEX 12 Days Qty: 26 0RF Rx Instructions: 20 mg orally, Take 3 tablets for 5 days THEN; Take 2 tablets for 4 days THEN; Take 1 tablet for 3 days No Action azithromycin 250 mg tablet 250 mg PO DAILY 6 Days Qty: 6 0RF Rx Instructions: start on day 2 of therapy benzocaine 15 mg lozenge 15 mg mucous membrane Q2-3H PRN (Reason: sore throat) Qty: 18 0RF nitrofurantoin monohyd/m-cryst [Macrobid] 100 mg capsule 100 mg PO Q12H 7 Days Qty: 14 0RF Rx Instructions: must administer with a meal/food cyclobenzaprine 10 mg tablet 10 mg PO TID PRN (Reason: muscle spasm) Qty: 14 0RF lidocaine 5 % adhesive patch,medicated 1 patch topical DAILY Qty: 15 0RF Rx Instructions: leave on most painful area for up to 12 hrs prednisone 20 mg tablet 40 mg PO DAILY Qty: 10 0RF Referrals: [facility] Family Medicine [Provider Group] (Call to establish and follow up with a primary care provider. If you already have a primary care provider, please follow up with them.) [facility] Primary [facility], [facility] [Provider Group] (Call to establish and follow up with a primary care provider. If you already have a primary care provider, please follow up with them.) [facility] Primary [facility] [Provider Group] (Call to establish and follow up with a primary care provider. If you already have a primary care provider, please follow up with them.) [facility] [Provider Group] (Call to establish and follow up with a primary care provider. If you already have a primary care provider, please follow up with them.) [facility] [Provider Group] (Call to establish and follow up with a early childhood specialist. ) [facility] [Provider Group] (Call to establish and follow up with a early childhood specialist. ) Interventions: ED Discharge Assessment Last Done: 07/03/24 13:11 Discharge Date/Time: 07/03/24 13:13 Print Language: Luxembourger
[2024-07-03 10:33] LABS: Alanine Aminotransferase 23 U/L (0-31); Albumin Level 4.5 g/dL (3.5-5.0); Alkaline Phosphatase 42 U/L (39-117); Anion Gap 10 (12-20); Aspartate Amino Transferase 20 U/L (5-31); Bilirubin Total 0.3 mg/dL (0.0-1.0); Blood Urea Nitrogen 11 mg/dL (9-16); Calcium 9.2 mg/dL (8.4-10.2); Carbon Dioxide 23 mmol/L (22-29); Chloride 109 mmol/L (96-108); Creatinine Clr Calc Pharmacy 113.7; Estimated Glomerular Filt Rate > 60; Glucose Random 95 mg/dL (60-115); Lipase 27 U/L (8-78); Potassium 4.1 mmol/L (3.3-5.1); Sodium 138 mmol/L (135-145); Total Protein 8.1 g/dL (6.5-8.0)
[2024-07-03 10:50] LABS: Influenza A PCR NEGATIVE (Negative); Influenza B PCR NEGATIVE (Negative); Resp Syncy Virus RNA Qual PCR NEGATIVE (Negative); SARS COV2 PCR INHOUSE NEGATIVE (Negative)
[2024-07-03] MEDS: methylPREDNISolone Sod Succ 125 MG/2 ML VIAL 60 MG IVPUSH (11:17)
[2024-07-03] MEDS: diazePAM 10 MG/2 ML CARTRIDGE 2.5 MG IVPUSH (11:18)
[2024-07-03 11:27] LABS: Appearance Urine Clear; Color Urine Yellow; Glucose Urine UA Negative (Negative); Leukocyte Esterase Urine Negative (Negative); Nitrite Urine Negative (Negative); PH 5.5 (5.0-9.0); Specific Gravity - Urine 1.025 (1.005-1.025); Urine Blood Negative (Negative); Urine Ketones Negative (Negative); Urine Protein Negative (Neg-Trace)
--- OUTSIDE RECORDS SUMMARY | 2024-07-03 11:40 | XMS_ITS | Referral Summary ---
Author Organization [facility] Address [address] [place] [address] Care Team Providers Care Felt Washing Machine Tender Name Role Phone Nikunj Marin Primary Care Provider [phone] Allergies Active Allergy Reactions Criticality Noted Date Comments Penicillins Swelling High 01/31/2024 Medications cyclobenzaprine (FLEXERIL) 10 mg tablet SMARTSI Tablet(s) By Mouth 3 Times Daily PRN 03/31/2024 Active ibuprofen (MOTRIN) 800 mg tablet SMARTSI Tablet(s) By Mouth 3 Times Daily PRN 10/05/2023 Active predniSONE (DELTASONE) 20 mg tablet SMARTSI Tablet(s) By Mouth Daily 03/31/2024 Active Social History Tobacco Use Types Packs/Day Years Used Date Smoking Tobacco: Never Smokeless Tobacco: Never Tobacco Cessation:Counseling Given: Not Answered Alcohol Use Standard Drinks/Week Comments Yes 0 (1 standard drink = 0.6 oz pur e alcohol) Comments Unknown Sex and Gender Information Value Date Recorded Sex Assigned at Female 10/24/2023 4:11 PM EDT Legal Sex Female 9:58 AM EDT Gender Identity Not on file Sexual Orientation Not on file Last Filed Vital Signs Vital Sign Reading Time Taken Comments Blood Pressure 97/67 04/03/2024 4:13 PM EST Pulse 73 04/03/2024 4:13 PM EST Temperature 37.1 ??C (98.7 ??F) 04/03/2024 4:13 PM ES T Respiratory Rate 18 04/03/2024 4:13 PM EST Oxygen Saturation 98% 04/03/2024 4:13 PM EST Inhaled Oxygen Concentration - - Weight 80.7 kg (178 lb) 04/03/2024 4:13 PM EST Height 162.6 cm (5' 4 ) 04/03/2024 4:13 PM EST Body Mass Index 30.55 04/03/2024 4:13 PM EST Plan of Treatment Upcoming Encounters Date Type Department Care Team (Late st Contact Info) Description 08/07/2024 3:40 PM EDT Office Visit [facility] [address] [place] [address] Desi Arreguin MD [address] [place] [address] Insurance [employer] Care Teams Felt Washing Machine Tender Relationship Specialty Start Date End Date Nikunj Marin [address] [place] [id number] PCP - General Internal Medicine 10/24/23
--- OUTSIDE RECORDS SUMMARY | 2024-07-03 11:40 | XMS_ITS | Continuity of Care Document ---
Author Organization [facility] Address [address] [place] [id number]- Care Team Providers Care Insert Operator Name Role Phone Agulia KUMAR, Nydia Calhoun Primary Care Physici [id number]): 05/21/24 - 06/24/[address] [address]- Encounter Diagnosis Cervicalgia(Final) - Pain in thoracic spine(Final) - Discharge Disposition: A-D/C Home Attending Physician: Aguila KUMAR, Nydia Calhoun Admitting Physician: Nydia Sheehan NP Referring Physician: Nydia Sheehan NP Encounter Type: Disch Recurring OP Allergies, Adverse Reactions, Alerts Substance Criticality Severity Reaction Reaction Severity Status penicillin Active Immunizations Given and Recorded Vaccine Date Status Refusal Reason tetanus/diphtheria/pertussis, acel(Tdap) 04/04/24 Given tetanus/diphtheria/pertussis, acel(Tdap) 02/02/14 Given influenza virus vaccine, inactivated 04/04/24 Give n influenza virus vaccine, inactivated 02/02/14 Give n influenza virus vaccine, inactivated 1 01/31/12 Gi nupur influenza virus vaccine, inactivated 03/30/98 Give n influenza virus vaccine, inactivated 12/29/97 Give n hepatitis B pediatric vaccine 2 05/05/10 Given hepatitis B pediatric vaccine 94 Given hepatitis B pediatric vaccine 3 94 Given hepatitis B pediatric vaccine 94 Given Human Papillomavirus Vaccine 4 09/20/09 Given Human Papillomavirus Vaccine 5 05/20/09 Given Human Papillomavirus Vaccine 6 09/05/07 Given influ virus vac, H1N1, live(oldterm) 7 05/20/09 Gi nupur Influenza Inactive (IM) (oldterm) 8 05/20/09 Given Meningococcal Polysaccharide Vaccine 9 05/20/09 Gi nupur Tet/Diphth/Acel, Pertussis (oldterm) 10 09/26/07 G iven Varicella Virus Vaccine 11 09/26/07 Given Varicella Virus Vaccine 12/29/97 Given Measles/Mumps/Rubella Virus Vaccine 05/31/98 Given Measles/Mumps/Rubella Virus Vaccine 02/21/95 Given diphtheria/tetanus/pertussis, acel(DTaP) 05/31/98 Given diphtheria/tetanus/pertussis, acel(DTaP) 06/05/95 Given diphtheria/tetanus/pertussis, acel(DTaP) 94 Given diphtheria/tetanus/pertussis, acel(DTaP) 94 Given diphtheria/tetanus/pertussis, acel(DTaP) 94 Given Poliovirus Vaccine, Inactivated 05/31/98 Given Poliovirus Vaccine, Inactivated 12 94 Given Poliovirus Vaccine, Inactivated 13 94 Given Poliovirus Vaccine, Inactivated 14 94 Given Haemophilus B conjugate (HbOC) vaccine 06/05/95 Gi nupur Haemophilus B conjugate (HbOC) vaccine 94 Gi nupur Haemophilus B conjugate (HbOC) vaccine 94 Gi nupur Haemophilus B conjugate (HbOC) vaccine 94 Gi nupur 1Admin Note: VIS dated 10/30/11 given 2Admin Note: VIS 11/14/06. given. 3Admin Note: VIS dated 11/14/2006 given 4Admin Note: vis 07.27.2009 given 5Admin Note: VIS 06/01/06 GIVEN 6Admin Note: gardasil #1 7Admin Note: VIS 01/2009 GIVEN 8Admin Note: VIS 12/27/08 GIVEN 9Admin Note: VIS 2007 GIVEN 10Admin Note: TDAP 11Admin Note: VARIVAX 12Admin Note: oral polio 13Admin Note: oral polio 14Admin Note: oral polio Medications amitriptyline 10 mg oral tablet 10 mg, 1, tablet, By Mouth, Daily at bedtime, # 30 tablet, Refills 5, Tot. Refills 5, Maintenance, 10/24/23 3:47:00 PM EDT, Route to Pharmacy Electronically, [id number], Partial fill upon patient request if the prescription is for a schedule II opioid drug., 163, cm, 10/24/23 14:51:0 0 EDT, Height, 79.1, kg, 10/24/23 14:51:00 EDT, Dry Weight Start Date: 10/24/23 Status: Ordered Quantity: 30.0 Unit: tablet Repeat number: 6 ProAir HFA 90 mcg/inh inhalation aerosol with adapter 1, puffs, Inhalation, Every 4 hours, PRN, # 2 each, Refills 2, Tot. Refills 2, Maintenance, 09/12/2409:44:00 AM EDT, Aerosol, Route to Pharmacy Electronically, [id number], [facility] #[id number], 163, cm, 04/24/23 14:37:00 EST, Height Start Date: 09/13/23 Stop Date: 12/12/23 Status: Ordered Quantity: 2.0 Unit: each Repeat number: 3 Indication: Unspecified asthma, uncomplicated Spacer Spacer, See Instructions, # 1 each, Refills 0, Tot. 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 VAN: 99, 01/17/22 5:27:00 PM EDT, Supply Start Date: 01/17/22 Status: Ordered Quantity: 1.0 Unit: each Repeat number: 1 Indication: Lesion of ulnar nerve, unspecified upper limb Problem List Condition Confirmation Course Effective Dates Status Health St atus Informant Allergic rhinitis Confirmed Active Asthma (possible) Confirmed Active Screening for cervical cancer Confirmed Active Headache 1 Confirmed Active Obese class I Confirmed Active Encounter for IUD removal Confirmed Active Screen for sexually transmitted diseases Confirmed Active School difficulties Confirmed Active Due for screening Confirmed Active Uses condoms for control Confirmed Active 1Probable migraine Social History Social History Type Response Smoking Status Never (less than 100 in lifetime) entered on: 02/02/22 Sex Female Sex Representation Female (finding) Patient Care team information Care Team Personnel Name: Aguila KUMAR, Nydia Calhoun Position: S PCO Associate Professional Member Role: PCP [address]: [address] [place] [address] Telecom: Care Team Related Persons Name: ROEL ESCOBAR Name: HOLDEN MENENDEZ Insurance Providers Guarantor name: JEFF SON Health Plan Information #: 1 Payer: [employer] Member Number: [id number] Policy Number: NA Group Number: [id number] Health Plan Information #: 2 Payer: [employer] [facility] Member Number: [id number] Policy Number: NA Group Number: [id number]
--- OUTSIDE RECORDS SUMMARY | 2024-07-03 11:40 | XMS_ITS | Continuity of Care Document ---
Author Organization [facility] Address [address] [place] [address]- Care Team Providers Care Chief Operator Name Role Phone Aguila KUMAR, Nydia Calhoun Primary Care Physici an Encounter [facility] Date(s): 05/21/24 - 06/20/24 [facility]/[address] [address]- Encounter Type: Triage Allergies, Adverse Reactions, Alerts Substance Criticality Severity [...] 05/20/09 Gi nupur Tet/Diphth/Acel, Pertussis (oldterm) 10 5/29/08 G iven Varicella Virus Vaccine 11 09/26/07 [...] 3:47:00 PM EDT, Route to Pharmacy Electronically, [facility] #[id number], Partial fill upon patient request if the [...] AM EDT, Aerosol, Route to Pharmacy Electronically, [id number], [facility] #[id number], 163, cm, 04/24/23 14:37:00 EST, Height Start [...] Personnel Name: Aguila KUMAR, Nydia Calhoun Position: [facility] PCO Associate Professional Member Role: PCP Address: [address] [place] [address] Telecom: Care Team Related Persons Name: ROEL ESCOBAR Name: HOLDEN MENENDEZ Insurance Providers Guarantor name: [facility] Plan Information #: 1 Payer: [facility] Member Number: NA Policy Number: NA Group Number: NA
--- OUTSIDE RECORDS SUMMARY | 2024-07-03 11:40 | XMS_ITS | Clinical Summary ---
Author Organization [facility] Address [address] [place] [address] Care Team Providers Care Cover Machine Operator Name Role Phone Nikunj Marin Primary Care Provider [phone] Allergies Active Allergy Reactions Criticality Noted Date [...] Description 08/07/2024 3:40 PM EDT Office Visit [facility] [address], [place] [id number] Desi Arreguin MD [address] [place] [address] Health Maintenance Due Date Last Done Comments Cervical Cancer Screening 1994 HIV Screening 1994 HPV and Pap Smear 1994 Hepatitis C Screening 1994 Pap Smear 1994 Pneumococcal Vaccine: Pediat pily (0-5 Years) and At-Risk Patients (6-50 Years) (1 of 2 - PCV) 2013 COVID-19 Vaccine ( - 2023-2 5 season) 2023 Influenza Vaccine (#1) 2023 4, 01/31/2012, 05/20/2009, Additional history exists DTaP,Tdap,and Td Vaccines (7 - Td or Tdap) 02/03/2024 02/02/2014, 05/31/1998, 06/05/1995, Additional history exists Alcohol/Substance Use Screening 04/30/2024 Depression Screening and Follow-Up 04/30/2024 Social Drivers of Health Madeleine ual Screening 04/30/2024 RSV Vaccine (60+ years old a nd patients) (1 - 1-dose 75+ series) 2069 Varicella Vaccines Completed 09/26/2007, 12/29/1997 Hepatitis B Vaccines Completed 05/05/2010, 1994, 1994, Additional history exists Insurance [employer] Care Teams Cover Machine Operator Relationship Specialty Start Date End Date Nikunj Marin [address] [place] [id number] PCP - General Internal Medicine 10/24/23
--- OUTSIDE RECORDS SUMMARY | 2024-07-03 11:40 | XMS_ITS | Clinical Summary ---
Author Organization [employer] [facility] ity Address [address] [place] [address] Care Team Providers Care Senior Android Software Engineer Name Role Phone Unavailable Primary Care Provider Unavailabl e Social History Tobacco Use Types Packs/Day Years Used Date Smoking Tobacco: Never Assessed Comments Unknown Sex and Gender Information Value Date Recorded Sex Assigned at Not on file Legal Sex Female 11:37 PM EST Gender Identity Not on file Sexual Orientation Not on file Plan of Treatment Health Maintenance Due Date Last Done Comments DTaP,Tdap,and Td Vaccines (1 - Tdap) 2013 Hepatitis B Vaccines (1 of 3 - 19+ 3-dose series) 2013 Cervical Cancer Screening: P ap Smear 2015 COVID-19 Vaccine ( - 2023-2 5 season) 2023 Influenza Vaccine (#1) 2023 HIB Vaccines Aged Out No longer eligi ble based on patient's age to complete this topic HPV Vaccines Aged Out No longer eligi ble based on patient's age to complete this topic Hepatitis A Vaccines Aged Out No long er eligible based on patient's age to complete this topic IPV Vaccines Aged Out No longer eligi ble based on patient's age to complete this topic MMR Vaccines Aged Out No longer eligi ble based on patient's age to complete this topic Meningococcal ACWY Vaccine Aged Out N o longer eligible based on patient's age to complete this topic Meningococcal B Vacine Aged Out No lo nger eligible based on patient's age to complete this topic Pneumococcal Vaccine: Pediat rics (0 to 5 Years) and At-Risk Patients (6 to 64 Years) Aged Out No longer eligible b ased on patient's age to complete this topic RSV Immunization Patients Un kiaar 20 months Aged Out No longer eligible b ased on patient's age to complete this topic Varicella Vaccines Aged Out No longer eligible based on patient's age to complete this topic
[2024-07-03 11:44] LABS: Bacteria Urine None Seen (None Seen); Hyaline Casts Urine 0-2 /LPF (0-2); RBC Urine 0-2 /HPF (0-2); Squamous Epithelial Cell Urine 0-2 /HPF (0-2); WBC Urine 0-5 /HPF (0-5)
[2024-07-03 11:47] LABS: HCG Quantitative < 2 mIU/mL
[2024-07-03 12:32] VITALS: BP 93/45; PULSE 61; RESP 14; TEMP 36.4; O2SAT 98
[2024-07-03 13:11] VITALS: BP 93/45; PULSE 61; RESP 14; TEMP 36.4; O2SAT 98
== END 2024-07-03 13:13 | disposition home or self-care (01) ==
PROVIDERS: Physician Assistant Medical; Emergency Provider Emergency Medicine
DX: M54.50 Low back pain, unspecified (principal); Z03.818 Encounter for observation for suspected exposure to other biological agents ruled out; Z79.899 Other long term (current) drug therapy
CPT/HCPCS: 0241U; 72131; 80053; 81001; 83690; 84702; 85025; 96374; 96375; 99284; J2919; J3360

== ENCOUNTER → 2024-07-03 10:48 | Outpatient (BNV) | payer OTHER, SELFPAY | PROVIDERS: Emergency Provider Emergency Medicine; Visit Provider Radiology Diagnostic Radiology | DX: M54.50 Low back pain, unspecified (principal) | CPT/HCPCS: 72131 ==

== ENCOUNTER 2024-08-13 23:49 | Emergency (ER) | payer MEDICAID, SELFPAY ==
--- NOTE | ~2024-08-13 | US_ITS ---
CLINICAL HISTORY: PAIN --- Additional Notes or Special Instructions: GB, CBD US abdomen limited Comparison: CT/AZ/SR - CT ABDOMEN PELVIS WO IV CON - 02/12/23 09:02 EDT Findings: Limited right upper quadrant ultrasound for evaluation of gallbladder and common bile duct. Common bile duct is within normal limits, 4.3 mm. Hypoechoic likely polyp associated with the dependent gallbladder wall. No gallbladder wall thickening. Sonographic Quiroz's sign is reportedly negative. IMPRESSION: Limited right upper quadrant ultrasound. Small hypoechoic probable polyp associated with the dependent gallbladder wall. This document has been electronically signed by: Jaron Cook MD, PHD on 08/14/2024 03:56:26
--- NOTE | ~2024-08-13 | XR_ITS ---
CLINICAL HISTORY: pain 1 view abdomen Comparison: CT/SR - CT LUMBAR SPINE WO IV CON - 07/03/24 11:49 EST CR/SR - XR KUB - 05/28/22 08:11 EST Findings: No pneumoperitoneum or pneumatosis. No abnormal calcifications. No acute fractures. IMPRESSION: Normal bowel gas pattern This document has been electronically signed by: Jaron Cook MD, PHD on 08/14/2024 03:00:00
[2024-08-13 23:51] VITALS: BP 110/64; PULSE 70; RESP 16; TEMP 36.7; O2SAT 98; BMI 30.1
--- OUTSIDE RECORDS SUMMARY | 2024-08-14 00:08 | XMS_ITS | Clinical Summary ---
Author Organization [facility] ity Address [address] [place] [address] Care Team Providers Care Mold Stacker Name Role Phone Unavailable Primary Care Provider [...] - 2023-2 5 season) 2023 Influenza Vaccine (Season Ended) 2024 HIB Vaccines Aged Out No longer eligi [...] age to complete this topic Meningococcal B Vaccine Aged Out No l onger eligible based on patient's age to complete this topic Pneumococcal Vaccine: Pediat rics (0 to 5 Years) and At-Risk Patients (6 to 64 Years) Aged Out No longer eligible b ased on patient's age to complete this topic RSV Immunization Patients Un kiara 20 months Aged Out No longer eligible b ased on patient's age to complete this topic Varicella Vaccines Aged Out No longer eligible based on patient's age to complete this topic
--- OUTSIDE RECORDS SUMMARY | 2024-08-14 00:08 | XMS_ITS | Referral Summary ---
Author Organization [facility] Address [address] [place] [address] Care Team Providers Care Alligator Shear Operator Name Role Phone Nikunj Marin Primary Care Provider [phone] Allergies Active Allergy Reactions Criticality Noted Date [...] 04/03/2024 4:13 PM EST Plan of Treatment Not on file Insurance [employer] Care Teams Alligator Shear Operator Relationship Specialty Start Date End Date Nikunj Marin [address] [place] [id number] PCP - General Internal Medicine 10/24/23
[2024-08-14 00:10] LABS: MANUAL DIFF FLAG NO
[2024-08-14 00:16] LABS: Basophils Percent Auto 0.2 % (0-2); Eosinophils Absolute Auto 0.1 X10*3/uL (0.0-0.4); Hematocrit 37.3 % (37.0-47.0); Imm Gran Abs Auto 0.03 X10*3/uL (0.00-0.03); Imm Gran Pct Auto 0.3 % (0.0-0.4); Lymphocytes Absolute Auto 2.4 X10*3/uL (1.2-4.9); Lymphocytes Percent Auto 22.7 % (20-40); Mean Corpuscular HGB Conc 34.9 g/dl (31.0-35.0); Mean Corpuscular Hemoglobin 30.4 pg (27.0-33.0); Mean Corpuscular Volume 87.1 fL (80.0-98.0); Mean Platelet Volume 10.5 fL (9.4-12.3); Monocytes Absolute Auto 0.4 X10*3/uL (0.1-1.2); Monocytes Percent Auto 3.9 % (2-11); Neutrophils Absolute Auto 7.7 x10*3/uL (2.0-8.3); Neutrophils Percent Auto 71.9 % (45-73); Platelet Count 251 X10*3/uL (160-400); Red Blood Count 4.28 X10*6/uL (4.20-5.50); Red Cell Distribution Width 12.4 % (11.0-16.0); White Blood Count 10.6 X10*3/uL (4.8-10.8)
[2024-08-14 00:25] LABS: Alanine Aminotransferase 24 U/L (0-31); Albumin Level 4.3 g/dL (3.5-5.0); Alkaline Phosphatase 41 U/L (39-117); Anion Gap 14 (12-20); Aspartate Amino Transferase 20 U/L (5-31); Bilirubin Total 0.5 mg/dL (0.0-1.0); Blood Urea Nitrogen 6 mg/dL (9-16); Calcium 9.1 mg/dL (8.4-10.2); Carbon Dioxide 20 mmol/L (22-29); Chloride 107 mmol/L (96-108); Estimated Glomerular Filt Rate > 60; Glucose Random 116 mg/dL (60-115); Lipase 20 U/L (8-78); Potassium 3.6 mmol/L (3.3-5.1); Sodium 137 mmol/L (135-145); Total Protein 7.2 g/dL (6.5-8.0)
--- NOTE | 2024-08-14 02:17 | ED_ITS ---
HPI - General Adult General Chief complaint: Abdominal Pain Stated complaint: stomach pain Time Seen by Provider: 08/14/24 02:17 Source: patient Limitations: no limitations History of Present Illness ED Provider: Sangeetha Laughlin PA-C HPI narrative: 29-year-old female presents with the abdominal pain x2 weeks. Pain over upper abdomen described as a burning sensation is nonradiating. Pain worse with the eating, causes nausea. Associated vomiting at times. Denies constipation or diarrhea no fever. Related Data Previous Rx's ?Medication ?Instructions ?Recorded azithromycin 250 mg tablet 250 mg PO DAILY 6 days #6 tabs 05/05/22 benzocaine 15 mg lozenges 15 mg mucous membrane Q2-3H PRN 05/05/22 sore throat #18 ea nitrofurantoin 100 mg PO Q12H 7 days #14 caps 02/12/23 monohydrate/macrocrystals 100 mg capsule (Macrobid) cyclobenzaprine 10 mg tablet 10 mg PO TID PRN muscle spasm #14 03/31/24 tabs lidocaine 5 % topical patch 1 patch topical DAILY #15 ea 03/31/24 prednisone 20 mg tablet 40 mg (2 x 20 mg) PO DAILY #10 tabs 03/31/24 cyclobenzaprine 5 mg tablet 5 mg PO TID PRN low back pain 7 07/03/24 days #21 tabs prednisone 20 mg tablet See Rx Instructions .Route 07/03/24 .COMPLEX 12 days #26 tabs ondansetron HCl 4 mg tablet 4 mg PO Q8H PRN nausea and 08/14/24 vomiting #10 tabs vitamins no.144-folic 2 tab PO DAILY #60 tabs 08/14/24 acid 400 mcg chewable tablet () sucralfate 1 gram tablet (Carafate) 1 g PO QID PRN indigestion #20 tabs 08/14/24 Allergies Allergy/AdvReac Type Severity Reaction Status Date / Time Penicillins Allergy Severe Swelling Verified 08/14/24 00:00 Review of Systems 2 Review of Systems: Yes all other systems are reviewed and are negative Constitutional: Constitutional: Denies fatigue and Denies fever(s) Cardiovascular: Cardiovascular: Denies chest pain and Denies dyspnea Respiratory: Respiratory: Denies dyspnea Gastrointestinal: Gastrointestinal: Reports abdominal pain, Denies constipation, Denies diarrhea, Reports nausea and Reports vomiting Endocrine: Endocrine: Denies fatigue PMFSH Past Medical History Attestation statement: The following information was validated with the patient. Social History Social History Smoked in Last 30 Days: No Use of substances other than those prescribed or required for medical reasons: No Advance Directives: No Advance Directives Information Provided: Yes Do you have a plan to hurt others: No Plan Patient : No Physical Exam ED Vital Signs: Vital Signs - 24 hr 08/13/24 23:51 Temperature 98.1 F Pulse Rate 70 Respiratory Rate 16 Blood Pressure 110/64 Pulse Oximetry 98 Oxygen Delivery Method Room Air BMI result Body Mass Index 30.1 Const Other: Alert Orientation/consciousness: patient oriented x3 Resp Effort & Inspection: normal respiratory effort Cardio Other: Normal peripheral perfusion GI Other: Abdomen is soft, nondistended, mild tenderness over epigastrium without any guarding Skin Other: Warm dry no rash Neuro General: patient oriented x3, gait normal, no focal motor deficits and CN's II- XI intact bilaterally Psych Other: Cooperative Course Reevaluation(s) Reevaluation #1: perfromed bedside obstetric ultrasound, I can see a gestational sac, she does not know when she truly had a last menstrual cycle, she has been irregular for years, she had negative test here 07/03/2024, so this is very early.....we will give her a contact for our ethylbenzene cracking supervisor Service, sending vitamins to her pharmacy. Time: 03:43 Medications Administered Generic Name Dose Route Start Last Admin Trade Name Freq PRN Reason Stop Dose Admin Sodium Chloride 1,000 mls @ 999 mls/hr 08/14/24 02:45 08/14/24 02:38 Ns IV 08/14/24 03:45 999 mls/hr .Q1H1M DUSTY Administration Discontinued Medications Generic Name Dose Route Start Last Admin Trade Name Freq PRN Reason Stop Dose Admin Al Hydroxide/Mg Hydroxide 30 ml 08/14/24 02:44 08/14/24 02:51 Magnesium Hydrox/Alum Hydrox 30 Ml Oral.Susp PO 08/14/24 02:45 30 ml ONCE ONE Administration Lidocaine HCl 15 ml 08/14/24 02:44 08/14/24 02:51 Lidocaine Hcl Viscous 2 % 15 Ml Solution MUCOUS MEM 08/14/24 02:45 15 ml ONCE ONE Administration Ondansetron HCl 4 mg 08/14/24 02:32 08/14/24 02:38 Ondansetron Hcl 4 Mg/2 Ml Vial IVPUSH 08/14/24 02:33 4 mg ONCE ONE Administration Medical Decision Making Medical Decision Making [facility] Narrative: 29-year-old female presents with the abdominal pain x2 weeks. Pain over upper abdomen described as a burning sensation is nonradiating. Pain worse with the eating, causes nausea. Associated vomiting at times. Denies constipation or diarrhea no fever. Problem: Constipation History: Per patient I have considered the following differential diagnoses: Constipation, bowel obstruction, biliary colic, cholecystitis, gastritis, poorly controlled GERD Plan: Patient here with a very benign abdominal exam, she has had symptoms for 2 weeks, screening labs were obtained and are unremarkable. This is likely constipation. I believe it was exacerbating reflux symptoms. We will be obtaining a KUB, giving Maalox, lidocaine, Zofran with IV fluid. Thought about bowel obstruction, however she has no obstructive symptoms. Given upper abdominal discomfort, also considered biliary colic versus cholecystitis, however there was no focal right upper quadrant discomfort, again she has had symptoms for 2 weeks, her LFTs are within normal limits. We will add an ultrasound to rule out the presence of gallstones. I have independently reviewed the following tests: Labs: No leukocytosis, not anemic, no electrolyte abnormality, LFTs are normal, !!! she did not know, [place] [id number] KUB: Findings: No pneumoperitoneum or pneumatosis. No abnormal calcifications. No acute fractures. IMPRESSION: Normal bowel gas pattern Ultrasound right upper quadrant: Lab Data 08/14/24 00:06 08/14/24 00:06 Labs: Lab Results 08/14/24 Range/Units 00:06 WBC 10.6 (4.8-10.8) X10*3/uL RBC 4.28 (4.20-5.50) X10*6/uL Hgb 13.0 (12.0-16.0) g/dl Hct 37.3 (37.0-47.0) % MCV 87.1 (80.0-98.0) fL MCH 30.4 (27.0-33.0) pg MCHC 34.9 (31.0-35.0) g/dl RDW 12.4 (11.0-16.0) % Plt Count 251 (160-400) X10*3/uL MPV 10.5 (9.4-12.3) fL Immature Gran % (Auto) 0.3 (0.0-0.4) % Neut % (Auto) 71.9 (45-73) % Lymph % (Auto) 22.7 (20-40) % Hamlin % (Auto) 3.9 (2-11) % Eos % (Auto) 1.0 (0-4) % Baso % (Auto) 0.2 (0-2) % Lymph # (Auto) 2.4 (1.2-4.9) X10*3/uL Hamlin # (Auto) 0.4 (0.1-1.2) X10*3/uL Eos # (Auto) 0.1 (0.0-0.4) X10*3/uL Baso # (Auto) 0.0 (0.0-0.2) X10*3/uL Abs Immat Gran (auto) 0.03 (0.00-0.03) X10*3/uL Absolute Neuts (auto) 7.7 (2.0-8.3) x10*3/uL Absolute Nucleated RBC 0.000 (0.0-0.012) X10*3/uL Nucleated RBC % (auto) 0.0 (0.0-0.2) /100WBC Sodium 137 (135-145) mmol/L Potassium 3.6 (3.3-5.1) mmol/L Chloride 107 (96-108) mmol/L Carbon Dioxide 20 L (22-29) mmol/L Anion Gap 14 (12-20) BUN 6 L (9-16) mg/dL Creatinine 0.73 (0.5-1.4) mg/dL Estim Creat Clear Calc 115.0 Estimated GFR > 60 Random Glucose 116 H (60-115) mg/dL Calcium 9.1 (8.4-10.2) mg/dL Total Bilirubin 0.5 (0.0-1.0) mg/dL AST 20 (5-31) U/L ALT 24 (0-31) U/L Alkaline Phosphatase 41 (39-117) U/L Total Protein 7.2 (6.5-8.0) g/dL Albumin 4.3 (3.5-5.0) g/dL Lipase 20 (8-78) U/L Beta HCG, Quant 15020 mIU/mL Discharge Plan Discharge Clinical Impression: and not yet delivered in first trimester, Constipation, GERD (gastroesophageal reflux disease) Patient Disposition: Home, Self-Care Instructions: Constipation (ED), Gastroesophageal Reflux Disease (ED), First Trimester (ED) Additional Instructions: You were found to be , we have a documented negative test from July 03 of this year. This is a very early . Take your vitamins as directed, call our ethylbenzene cracking supervisor service to initiate care. In regard to the constipation see home care instructions. See home care instructions for your poorly controlled acid reflux. Uses Zofran as needed for nausea, use the Carafate as needed for indigestion and upper abdominal discomfort. For your constipation, you can safely use milk of magnesia, you can purchase this [id number], use it per package instructions. Prescriptions: New ondansetron HCl 4 mg tablet 4 mg PO Q8H PRN (Reason: nausea and vomiting) Qty: 10 0RF 400 mcg tablet,chewable 2 tab PO DAILY Qty: 60 0RF sucralfate [Carafate] 1 gram tablet 1 g PO QID PRN (Reason: indigestion) Qty: 20 0RF No Action azithromycin 250 mg tablet 250 mg PO DAILY 6 Days Qty: 6 0RF Rx Instructions: start on day 2 of therapy benzocaine 15 mg lozenge 15 mg mucous membrane Q2-3H PRN (Reason: sore throat) Qty: 18 0RF nitrofurantoin monohyd/m-cryst [Macrobid] 100 mg capsule 100 mg PO Q12H 7 Days Qty: 14 0RF Rx Instructions: must administer with a meal/food cyclobenzaprine 10 mg tablet 10 mg PO TID PRN (Reason: muscle spasm) Qty: 14 0RF lidocaine 5 % adhesive patch,medicated 1 patch topical DAILY Qty: 15 0RF Rx Instructions: leave on most painful area for up to 12 hrs prednisone 20 mg tablet 40 mg PO DAILY Qty: 10 0RF cyclobenzaprine 5 mg tablet 5 mg PO TID PRN (Reason: low back pain) 7 Days Qty: 21 0RF prednisone 20 mg tablet See Rx Instructions .ROUTE .COMPLEX 12 Days Qty: 26 0RF Rx Instructions: 20 mg orally, Take 3 tablets for 5 days THEN; Take 2 tablets for 4 days THEN; Take 1 tablet for 3 days Print Language: Faroese
[2024-08-14] MEDS: ondansetron HCL 4 MG/2 ML VIAL IVPUSH (02:38)
[2024-08-14] MEDS: 0.9 % Sodium Chloride 1,000 ML 999 ML IV (02:38)
[2024-08-14] MEDS: Lidocaine HCl Viscous 2 % 15 ML SOLUTION MUCOUS MEM (02:51)
[2024-08-14] MEDS: Magnesium Hydrox/Alum Hydrox 30 ML ORAL.SUSP PO (02:51)
[2024-08-14 02:58] LABS: HCG Quantitative 78078 mIU/mL
[2024-08-14 04:09] VITALS: BP 106/60; PULSE 66; RESP 16; TEMP 36.6; O2SAT 98
[2024-08-14 04:13] VITALS: BP 106/60; PULSE 66; RESP 16; TEMP 36.6; O2SAT 98
== END 2024-08-14 04:13 | disposition home or self-care (01) ==
PROVIDERS: Physician Assistant Medical; Emergency Provider Emergency Medicine; PCP Registered Nurse
DX: O26.891 Other specified pregnancy related conditions, first trimester (principal); K59.00 Constipation, unspecified; K21.9 Gastro-esophageal reflux disease without esophagitis; Z3A.01 Less than 8 weeks gestation of pregnancy
CPT/HCPCS: 36415; 74018; 76705; 80053; 83690; 84702; 85025; 96361; 96374; 99284; J2405

== ENCOUNTER → 2024-08-14 02:18 | Outpatient (BNV) | payer MEDICAID, SELFPAY | PROVIDERS: Emergency Provider Emergency Medicine; PCP Registered Nurse; Visit Provider General Practice | DX: K82.4 Cholesterolosis of gallbladder (principal); R10.9 Unspecified abdominal pain | CPT/HCPCS: 74018; 76705 ==

== ENCOUNTER 2024-08-17 20:54 | Emergency (ER) | payer MEDICAID, SELFPAY ==
[2024-08-17 20:58] VITALS: BP 107/63; PULSE 70; RESP 18; TEMP 37; O2SAT 95; BMI 29.7
[2024-08-17 21:26] LABS: MANUAL DIFF FLAG NO
[2024-08-17 21:29] LABS: Basophils Percent Auto 0.3 % (0-2); Eosinophils Absolute Auto 0.1 X10*3/uL (0.0-0.4); Eosinophils Percent Auto 0.9 % (0-4); Hematocrit 38.3 % (37.0-47.0); Hemoglobin 13.3 g/dl (12.0-16.0); Imm Gran Abs Auto 0.04 X10*3/uL (0.00-0.03); Imm Gran Pct Auto 0.4 % (0.0-0.4); Lymphocytes Absolute Auto 2.3 X10*3/uL (1.2-4.9); Lymphocytes Percent Auto 22.3 % (20-40); Mean Corpuscular HGB Conc 34.7 g/dl (31.0-35.0); Mean Corpuscular Hemoglobin 30.1 pg (27.0-33.0); Mean Corpuscular Volume 86.7 fL (80.0-98.0); Mean Platelet Volume 10.4 fL (9.4-12.3); Monocytes Absolute Auto 0.6 X10*3/uL (0.1-1.2); Monocytes Percent Auto 5.3 % (2-11); Neutrophils Absolute Auto 7.4 x10*3/uL (2.0-8.3); Neutrophils Percent Auto 70.8 % (45-73); Platelet Count 268 X10*3/uL (160-400); Red Blood Count 4.42 X10*6/uL (4.20-5.50); Red Cell Distribution Width 12.2 % (11.0-16.0); White Blood Count 10.4 X10*3/uL (4.8-10.8)
[2024-08-17 21:34] LABS: Appearance Urine Clear; Color Urine Dark Yellow; Glucose Urine UA Negative (Negative); Leukocyte Esterase Urine Trace (Negative); Nitrite Urine Negative (Negative); PH 6.5 (5.0-9.0); Specific Gravity - Urine >= 1.030 (1.005-1.025); UMIC TRIGGER UACC YES; Urine Blood Negative (Negative); Urine Ketones 40 mg/dL (Negative); Urine Protein 30 (1+) mg/dL (Neg-Trace)
[2024-08-17 21:44] LABS: Alanine Aminotransferase 27 U/L (0-31); Albumin Level 4.5 g/dL (3.5-5.0); Alkaline Phosphatase 42 U/L (39-117); Anion Gap 14 (12-20); Aspartate Amino Transferase 24 U/L (5-31); Bilirubin Total 0.7 mg/dL (0.0-1.0); Blood Urea Nitrogen 7 mg/dL (9-16); Calcium 9.3 mg/dL (8.4-10.2); Carbon Dioxide 21 mmol/L (22-29); Chloride 106 mmol/L (96-108); Creatinine Clr Calc Pharmacy 122.7; Estimated Glomerular Filt Rate > 60; Glucose Random 94 mg/dL (60-115); Magnesium 2.1 mg/dL (1.6-2.6); Potassium 3.5 mmol/L (3.3-5.1); Sodium 137 mmol/L (135-145); Total Protein 7.5 g/dL (6.5-8.0)
[2024-08-17 21:57] LABS: Bacteria Urine Trace (None Seen); Hyaline Casts Urine 0-2 /LPF (0-2); RBC Urine 0-2 /HPF (0-2); WBC Urine 0-5 /HPF (0-5)
--- NOTE | 2024-08-17 23:22 | ED_ITS ---
HPI - General Adult General Chief complaint: Abdominal Pain Stated complaint: vomiting/not able to get medication from pharmacy Time Seen by Provider: 08/17/24 22:54 Source: patient, RN notes reviewed and old records reviewed Mode of arrival: ambulatory Limitations: no limitations History of Present Illness ED Provider: Madelaine HPI narrative: 29-year-old female presents for evaluation of upper abdominal pain, nausea and vomiting. Patient was seen here 3 days ago on 08/14/2024. She was found to be , constipated and was discharged with vitamins, sucralfate and outpatient OBGYN follow-up she reports that she has been unable to fill her prescriptions due to insurance issues she states that she was not been able to eat or drink anything since her discharge due to her nausea and vomiting. She was she reports that she had similar episodes with her last 2 pregnancies lasting relief here entire she denies a lower abdominal pain, vaginal bleeding, discharge no other complaints or concerns at this time Related Data Previous Rx's ?Medication ?Instructions ?Recorded azithromycin 250 mg tablet 250 mg PO DAILY 6 days #6 tabs 05/05/22 benzocaine 15 mg lozenges 15 mg mucous membrane Q2-3H PRN 05/05/22 sore throat #18 ea nitrofurantoin 100 mg PO Q12H 7 days #14 caps 02/12/23 monohydrate/macrocrystals 100 mg capsule (Macrobid) cyclobenzaprine 10 mg tablet 10 mg PO TID PRN muscle spasm #14 03/31/24 tabs lidocaine 5 % topical patch 1 patch topical DAILY #15 ea 03/31/24 prednisone 20 mg tablet 40 mg (2 x 20 mg) PO DAILY #10 tabs 03/31/24 cyclobenzaprine 5 mg tablet 5 mg PO TID PRN low back pain 7 07/03/24 days #21 tabs prednisone 20 mg tablet See Rx Instructions .Route 07/03/24 .COMPLEX 12 days #26 tabs ondansetron HCl 4 mg tablet 4 mg PO Q8H PRN nausea and 08/14/24 vomiting #10 tabs vitamins no.144-folic 2 tab PO DAILY #60 tabs 08/14/24 acid 400 mcg chewable tablet () sucralfate 1 gram tablet (Carafate) 1 g PO QID PRN indigestion #20 tabs 08/14/24 Allergies Allergy/AdvReac Type Severity Reaction Status Date / Time Penicillins Allergy Severe Swelling Verified 08/17/24 21:04 Review of Systems 2 Constitutional: Constitutional: Denies body ache(s), Denies chills, Denies fever(s), Reports poor appetite and Reports weakness Eyes: Eyes: Denies blurry vision ENT: Denies vertigo and Denies dizziness Cardiovascular: Cardiovascular: Denies chest pain Respiratory: Respiratory: Denies cough Gastrointestinal: Gastrointestinal: Reports abdominal pain, Denies hematochezia, Reports nausea and Reports vomiting Genitourinary: Genitourinary: Denies dysuria, Denies pelvic pain and Denies vaginal discharge Musculoskeletal: Musculoskeletal: Denies back pain Integumentary/Breasts: Skin/Breast: Denies rash Neurologic: Denies vertigo, Denies dizziness and Reports weakness PMFSH Social History Social History Smoked in Last 30 Days: No Use of substances other than those prescribed or required for medical reasons: No Advance Directives: No Advance Directives Information Provided: Yes Patient : Yes Physical Exam ED Vital Signs: Vital Signs - 24 hr 08/17/24 20:58 08/17/24 23:28 Temperature 98.6 F 98.4 F Pulse Rate 70 57 Respiratory Rate 18 19 Blood Pressure 107/63 98/55 L Pulse Oximetry 95 96 Oxygen Delivery Method Room Air Room Air BMI result Body Mass Index 29.7 Const General: healthy appearing, comfortable, no acute distress, alert and awake Nutritional Appearance: well nourished Orientation/consciousness: [facility]: Yes normocephalic and Yes atraumatic Eyes Eyelids: Yes eyelids normal Conjunctivae: conjunctivae normal Sclerae: sclerae normal Corneas: corneas normal Pupils: Equal, round and reactive pupils present EOM: EOMs intact bilaterally Neck Neck: Yes full ROM Resp Effort & Inspection: normal respiratory effort, able to speak in complete sentences and not labored GI Inspection: No distended Palpation (GI): Soft to palpation, not firm, nontender, no guarding and not rigid Skin General skin exam: elasticity normal Neuro General: patient oriented x3 Cranial nerves: Yes Equal, round and reactive pupils present and Yes Bilaterally intact EOM present Cognition (Neuro): normal cognition Extrem Other: Moving all extremities well without any obvious deformities Course Reevaluation(s) Reevaluation #1: patient reports feeling much better after IV fluids and Zofran. Plan to p.o. challenge the patient Time: 00:53 Medications Administered Discontinued Medications Generic Name Dose Route Start Last Admin Trade Name Kylie PRN Reason Stop Dose Admin Sodium Chloride 1,000 mls @ 999 mls/hr 08/17/24 23:15 08/18/24 01:01 Ns IV 08/18/24 00:15 Infused .Q1H1M DUSTY Infusion Ondansetron HCl 4 mg 08/17/24 23:10 08/17/24 23:25 Ondansetron Hcl 4 Mg/2 Ml Vial IVPUSH 08/17/24 23:11 4 mg ONCE ONE Administration Sucralfate 1 gm 08/17/24 23:10 08/17/24 23:27 Sucralfate Oral Suspension 1 Gm/10 Ml Oral.Susp PO 08/17/24 23:11 Not Given ONCE ONE Medical Decision Making Medical Decision Making [facility] Narrative: 29 old female presents for evaluation of burning upper abdominal pain with nausea and vomiting. She was known to be perfectly from her visit 3 days ago. She was not been able to feel her medications for GERD and nausea and vomiting. She does have some ketones in her urine suggestive of mild dehydration. Her vital signs are stable, labs are reassuring. there was no evidence of SAPPHIRE. hematology is also without concerning findings. The patient has a reassuring exam, she was nontender to palpation of the entire abdomen including the left upper quadrant. Low suspicion for ectopic . Her symptoms are most consistent with hyperemesis gravidarum given her and vomiting for the last several days. We will treat with IV fluids given the ketones in her urine for both Zofran and Carafate. She was given a GI cocktail on her last visit which she does not want again. Differential Diagnosis Differential Diagnoses: The differential diagnosis associated with the presentation includes Hyperemesis gravidarum Gastritis Gastroenteritis Biliary disease less likely ectopic less likely Lab Data [facility] Lab Attestation statement: I reviewed the patient's lab results. as above 08/17/24 21:20 08/17/24 21:20 Labs: Lab Results 08/17/24 08/17/24 Range/Units 21:20 21:22 WBC 10.4 (4.8-10.8) X10*3/uL RBC 4.42 (4.20-5.50) X10*6/uL Hgb 13.3 (12.0-16.0) g/dl Hct 38.3 (37.0-47.0) % MCV 86.7 (80.0-98.0) fL MCH 30.1 (27.0-33.0) pg MCHC 34.7 (31.0-35.0) g/dl RDW 12.2 (11.0-16.0) % Plt Count 268 (160-400) X10*3/uL MPV 10.4 (9.4-12.3) fL Immature Gran % (Auto) 0.4 (0.0-0.4) % Neut % (Auto) 70.8 (45-73) % Lymph % (Auto) 22.3 (20-40) % [place] % (Auto) 5.3 (2-11) % Eos % (Auto) 0.9 (0-4) % Baso % (Auto) 0.3 (0-2) % Lymph # (Auto) 2.3 (1.2-4.9) X10*3/uL [place] # (Auto) 0.6 (0.1-1.2) X10*3/uL Eos # (Auto) 0.1 (0.0-0.4) X10*3/uL Baso # (Auto) 0.0 (0.0-0.2) X10*3/uL Abs Immat Gran (auto) 0.04 H (0.00-0.03) X10*3/uL Absolute Neuts (auto) 7.4 (2.0-8.3) x10*3/uL Absolute Nucleated RBC 0.000 (0.0-0.012) X10*3/uL Nucleated RBC % (auto) 0.0 (0.0-0.2) /100WBC Sodium 137 (135-145) mmol/L Potassium 3.5 (3.3-5.1) mmol/L Chloride 106 (96-108) mmol/L Carbon Dioxide 21 L (22-29) mmol/L Anion Gap 14 (12-20) BUN 7 L (9-16) mg/dL Creatinine 0.68 (0.5-1.4) mg/dL Estim Creat Clear Calc 122.7 Estimated GFR > 60 Random Glucose 94 (60-115) mg/dL Calcium 9.3 (8.4-10.2) mg/dL Magnesium 2.1 (1.6-2.6) mg/dL Total Bilirubin 0.7 (0.0-1.0) mg/dL AST 24 (5-31) U/L ALT 27 (0-31) U/L Alkaline Phosphatase 42 (39-117) U/L Total Protein 7.5 (6.5-8.0) g/dL Albumin 4.5 (3.5-5.0) g/dL Urine Color Dark Yellow Urine Appearance Clear Urine pH 6.5 (5.0-9.0) Ur Specific [place] >= 1.030 H (1.005-1.025) Urine Protein 30 (1+) H (Neg-Trace) mg/dL Urine Glucose (UA) Negative (Negative) mg/dL Urine Ketones 40 (Negative) mg/dL Urine Blood Negative (Negative) Urine Nitrite Negative (Negative) Ur Leukocyte Esterase Trace H (Negative) Urine RBC 0-2 (0-2) /HPF Urine WBC 0-5 (0-5) /HPF Ur Squamous Epith Cells 6-10 (0-2) /HPF Urine Bacteria Trace (None Seen) Hyaline Casts 0-2 (0-2) /LPF Discharge Plan Discharge Clinical Impression: Hyperemesis gravidarum Patient Disposition: Home, Self-Care Instructions: Hyperemesis Gravidarum (ED) Additional Instructions: you may fill the prescriptions that you were prescribed the other day. I recommend that you eat and drink in small amounts at a time to prevent nausea and vomiting. It was important to follow up with OBGYN Prescriptions: No Action azithromycin 250 mg tablet 250 mg PO DAILY 6 Days Qty: 6 0RF Rx Instructions: start on day 2 of therapy benzocaine 15 mg lozenge 15 mg mucous membrane Q2-3H PRN (Reason: sore throat) Qty: 18 0RF nitrofurantoin monohyd/m-cryst [Macrobid] 100 mg capsule 100 mg PO Q12H 7 Days Qty: 14 0RF Rx Instructions: must administer with a meal/food cyclobenzaprine 10 mg tablet 10 mg PO TID PRN (Reason: muscle spasm) Qty: 14 0RF lidocaine 5 % adhesive patch,medicated 1 patch topical DAILY Qty: 15 0RF Rx Instructions: leave on most painful area for up to 12 hrs prednisone 20 mg tablet 40 mg PO DAILY Qty: 10 0RF cyclobenzaprine 5 mg tablet 5 mg PO TID PRN (Reason: low back pain) 7 Days Qty: 21 0RF prednisone 20 mg tablet See Rx Instructions .ROUTE .COMPLEX 12 Days Qty: 26 0RF Rx Instructions: 20 mg orally, Take 3 tablets for 5 days THEN; Take 2 tablets for 4 days THEN; Take 1 tablet for 3 days ondansetron HCl 4 mg tablet 4 mg PO Q8H PRN (Reason: nausea and vomiting) Qty: 10 0RF 400 mcg tablet,chewable 2 tab PO DAILY Qty: 60 0RF sucralfate [Carafate] 1 gram tablet 1 g PO QID PRN (Reason: indigestion) Qty: 20 0RF Print Language: Croatian
[2024-08-17] MEDS: 0.9 % Sodium Chloride 1,000 ML 999 ML IV (23:25)
[2024-08-17] MEDS: ondansetron HCL 4 MG/2 ML VIAL IVPUSH (23:25)
[2024-08-17 23:28] VITALS: BP 98/55; PULSE 57; RESP 19; TEMP 36.9; O2SAT 96
[2024-08-18] MEDS: Sucralfate 1 GM TABLET PO (01:40)
[2024-08-18 01:44] VITALS: BP 118/72; PULSE 62; RESP 18; TEMP 36.7; O2SAT 96
== END 2024-08-18 01:46 | disposition home or self-care (01) ==
PROVIDERS: Emergency Provider Internal Medicine; PCP Registered Nurse
DX: O21.0 Mild hyperemesis gravidarum (principal); Z3A.00 Weeks of gestation of pregnancy not specified; R10.10 Upper abdominal pain, unspecified
CPT/HCPCS: 36415; 80053; 81001; 83735; 85025; 96361; 96374; 99284; J2405